=== PATIENT | female | born 1930 | race Caucasian/White ===

== ENCOUNTER 2016-12-24 08:30 | Observation (INO) | payer MEDICARE, MEDICAID ==
[~2016-12-24] VITALS: Ht 157.5 cm; Wt 60.5 kg
[2016-12-24] VITALS (9 sets, daily range): BP systolic 155–204; BP diastolic 63–88; PULSE 58–80; RESP 16–18; TEMP 98.1–98.3; O2SAT 96–99
[~2016-12-24 08:30] MED LIST: CARV3.125 PO; HYDR25TA35 PO; LOSA50TA PO; MECL12.574 PO; NEXI40CA PO; PRAV40TA2 PO; TRAM50 PO; XALA0.00 EACH EYE; ZOFR4TAB3 PO
[2016-12-24] MEDS ORDERED: ONDANSETRON HCL 4 MG/2 ML VIAL IV PUSH ONE (09:30)
--- NOTE | 2016-12-24 10:16 | PD ---
HPI Chief Complaint: Back/ Neck Pain or Injury Time Seen by Provider: 09:20 Travel History International Travel<30 days: No Contact w/Intl Traveler<30days: No Traveled to known affect area: No History of Present Illness HPI Patient is an 86-year-old female who presents to emergency room with her family members for evaluation of neck weakness. Patient reports that she has history of generalized weakness and is currently undergoing home PT. Reports that she had some physical therapy on her neck on Thursday. Patient reports that she woke up on Thursday morning and was unable to lift up her neck. Patient's son thought that symptoms were secondary to overexertion from her physical therapy from the day prior. Reports that they did talk to patient's primary care doctor on Thursday and primary care doctor and PCP suggested that patient undergo PT. Reports that today, patient is still unable to lift her neck up - they did call pcp who told her to go to the hospital for evaluation. Patient denies any fall or trauma. Patient denies any headache at this time, denies any chest pain or shortness of breath. PFSH Past Medical History Cardiovascular Problems: Yes High Cholesterol: Yes Congestive Heart Failure: Yes Diminished Hearing: Yes GERD: Yes Hypertension: Yes Immunizations Current: Yes Tetanus Vaccination: < 5 Years Influenza Vaccination: Yes ?: Not Menopausal: Yes Past Surgical History Appendectomy: Yes Cholecystectomy: Yes Ear Surgery: Yes (cataract and laser) Hysterectomy: Yes (partial) Social History Alcohol Use: No Tobacco Use: No Substance Use: No Allergies-Medications (Allergen,Severity, Reaction): Coded Allergies: Penicillin (Verified Allergy, Severe, Hives, 07/01/16) Sulfa (Verified Allergy, Severe, Anaphylaxis, 07/01/16) Tetanus Toxoid (Verified Allergy, Severe, Nausea/Vomiting, 07/01/16) Reported Meds & Prescriptions Reported Meds & Active Scripts Active Ultram (Tramadol HCl) 50 Mg Tab 50 Mg PO Q6H PRN FOR PAIN Zofran ODT (Ondansetron HCl) 4 Mg Tab 4 Mg PO Q6HR Reported Meclizine Hcl (Meclizine HCl) 12.5 Mg Tab 12.5 Mg PO Q8H PRN Hydralazine HCl 25 Mg Tab 25 Mg PO BID Nexium (Esomeprazole Magnesium) Esomeprazole Magnesium 40 mg Cap 40 Mg PO BID Pravastatin Sodium 40 Mg Tab 40 Mg PO DAILY Coreg 3.125 mg (Carvedilol) 3.125 Mg Tab 12.5 Mg PO BID Losartan Potassium 50 MG (Losartan Potassium) 50 Mg Tab 50 Mg PO BID HOLD FOR BP < 130/80 Xalatan (Latanoprost) 0.005 % Dixie 1 Drop EACH EYE HS Review of Systems General / Constitutional: No: Fever Eyes: No: Visual changes HENT: No: Headaches Cardiovascular: No: Chest Pain or Discomfort Respiratory: No: Shortness of Breath Gastrointestinal: No: Abdominal Pain Genitourinary: No: Dysuria Musculoskeletal: No: Pain Skin: No Rash Neurologic: Positive: Other (neck pain), No: Weakness Psychiatric: No: Depression Endocrine: No: Polydipsia Hematologic/Lymphatic: No: Easy Bruising Physical Exam Narrative GENERAL: nad, nontoxic SKIN: Warm and dry. HEAD: Atraumatic. Normocephalic. EYES: Pupils equal and round. No scleral icterus. No injection or drainage. ENT: No nasal bleeding or discharge. Mucous membranes pink and moist. NECK: Trachea midline. No JVD. positive cervical midline tenderness, patient unable to lift neck CARDIOVASCULAR: Regular rate and rhythm. No murmur appreciated. RESPIRATORY: No accessory muscle use. Clear to auscultation. Breath sounds equal bilaterally. GASTROINTESTINAL: Abdomen soft, non-tender, nondistended. Hepatic and splenic margins not palpable. MUSCULOSKELETAL: No obvious deformities. No clubbing. No cyanosis. No edema. NEUROLOGICAL: Awake and alert. No obvious cranial nerve deficits. Motor grossly within normal limits. Normal speech. PSYCHIATRIC: Appropriate mood and affect; insight and judgment normal. Data Data Last Documented VS Vital Signs Date Time Temp Pulse Resp B/P Pulse Ox O2 Delivery O2 Flow Rate FiO2 12/24/16 10:23 58 17 157/63 98 Room Air 12/24/16 08:31 98.3 Orders Electrocardiogram (12/24/16 09:46) Prothrombin Time / Inr (Pt) (12/24/16 09:46) Act Partial Throm Time (Ptt) (12/24/16 09:46) Complete Blood Count With Diff (12/24/16 09:46) Comprehensive Metabolic Panel (12/24/16 09:46) Creatine Kinase (Cpk) (12/24/16 09:46) Troponin I (12/24/16 09:46) Urinalysis - C+S If Indicated (12/24/16 09:46) Ct Brain W/O Iv Contrast(Rout) (12/24/16 09:46) Chest, Single Ap (12/24/16 09:46) Ecg Monitoring (12/24/16 09:46) Iv Access Insert/Monitor (12/24/16 09:46) Oximetry (12/24/16 09:46) Sodium Chloride 0.9% Flush (Ns Flush) (12/24/16 10:00) Ct Cerv Spine W/O Contrast (12/24/16 ) Urine Culture (12/24/16 09:57) Levofloxacin 500 Mg Premix Inj (Levaquin (12/24/16 10:45) Admit Order (Ed Use Only) (12/24/16 11:27) Labs Laboratory Tests Test 12/24/16 12/24/16 09:57 10:10 Urine Color YELLOW Urine Turbidity HAZY Urine pH 5.5 Urine Specific [place] 1.023 Urine Protein 100 mg/dL Urine Glucose (UA) NEG mg/dL Urine Ketones 10 mg/dL Urine Occult Blood SMALL Urine Nitrite NEG Urine Bilirubin NEG Urine Urobilinogen 2.0 MG/DL Urine Leukocyte Esterase LARGE Urine RBC 6 /hpf Urine WBC 36 /hpf Urine Squamous Epithelial 25 /hpf Cells Urine Transitional Epithelial 1 /hpf Cells Urine Bacteria OCC /hpf Urine Granular Casts 4 /lpf Urine Mucus FEW /lpf Microscopic Urinalysis Comment CATH-CULTURE IND White Blood Count 7.3 TH/MM3 Red Blood Count 3.67 MIL/MM3 Hemoglobin 11.5 GM/DL Hematocrit 33.0 % Mean Corpuscular Volume 89.9 FL Mean Corpuscular Hemoglobin 31.3 PG Mean Corpuscular Hemoglobin 34.8 % Concent Red Cell Distribution Width 12.7 % Platelet Count 318 TH/MM3 Mean Platelet Volume 7.4 FL Neutrophils (%) (Auto) 77.5 % Lymphocytes (%) (Auto) 13.5 % Monocytes (%) (Auto) 6.8 % Eosinophils (%) (Auto) 1.7 % Basophils (%) (Auto) 0.5 % Neutrophils # (Auto) 5.6 TH/MM3 Lymphocytes # (Auto) 1.0 TH/MM3 Monocytes # (Auto) 0.5 TH/MM3 Eosinophils # (Auto) 0.1 TH/MM3 Basophils # (Auto) 0.0 TH/MM3 CBC Comment DIFF FINAL Differential Comment Prothrombin Time 11.1 SEC Prothromb Time International 1.0 RATIO Ratio Activated Partial 22.2 SEC Thromboplast Time Sodium Level 136 MEQ/L Potassium Level 4.1 MEQ/L Chloride Level 103 MEQ/L Carbon Dioxide Level 26.5 MEQ/L Anion Gap 7 MEQ/L Blood Urea Nitrogen 22 MG/DL Creatinine 1.13 MG/DL Estimat Glomerular Filtration 45 ML/MIN Rate Random Glucose 160 MG/DL Calcium Level 8.7 MG/DL Total Bilirubin 0.5 MG/DL Aspartate Amino Transf 15 U/L (AST/SGOT) Alanine Aminotransferase 17 U/L (ALT/SGPT) Alkaline Phosphatase 46 U/L Total Creatine Kinase 79 U/L Troponin I 0.14 NG/ML Total Protein 6.4 GM/DL Albumin 3.1 GM/DL MDM Medical Decision Making Medical Screen Exam Complete: Yes Emergency Medical Condition: Yes Interpretation(s) Vital Signs Date Time Temp Pulse Resp B/P Pulse Ox O2 Delivery O2 Flow Rate FiO2 12/24/16 08:31 98.3 73 18 159/65 Room Air Differential Diagnosis cva, electrolyte abnormality, cervical radiculopathy, generalized muscle weakness, C-spine fracture Narrative Course Patient is an 86-year-old female who presents to emergency room for evaluation of weakness to her neck. Patient reports that she has not been able to lift up her neck since Thursday morning. Patient denies any trauma to her neck other than undergoing some physical therapy to her neck on Thursday. Patient reports that she called her primary care doctor and was instructed to come to the ER for further workup and evaluation of neck weakness. Patient with no other c/o at this time. cbc: wbc: 7.3 hgb: 11.5 hct: 33.0 platelets: 318 bmp: sodium 136 potassium 4.1 chloride 103 bun 11 cr 1.13 glucose 160 trop 0.14 coags pt: 11.1 ptt 22.2 inr 1.0 UA: hazy urine, small occult blood, large leuk esteraste, 36wbc, occ bacteria Last Impressions Head CT 12/24/16945 Signed Impressions: Service Date/Time: Saturday, December 24, 2016 10:36 - CONCLUSION: Negative for an acute process. Triston Escobar MD FACR Chest X-Ray 12/24/16945 Signed Impressions: Service Date/Time: Saturday, December 24, 2016 09:50 - CONCLUSION: 1. No acute cardiopulmonary findings. Bret Escobar MD ekg: nsr at 61bmp, qt/qtc: 408/403, no acute st or t change, pt does have a trop of 0.14 - pt with no chest pain at this time. pt with NSTEMI pt also with uti - pt was given dose of levaquin for uti BUN/CR mildly elevated - pt was given IVF pt will require admission for further workup of NSTEMI, dehydration and for her weakness and inability to lift up her neck. case reviewed with dr. yoo with FP - accepts pt to service Diagnosis Primary Impression: NSTEMI (non-ST elevated myocardial infarction) Additional Impressions: UTI (urinary tract infection) Qualified Code: N30.01 - Acute cystitis with hematuria Dehydration Admitting Information Admitting Physician Requests: Admit Stacey Cuello DO Dec 24, 2016 10:16
--- NOTE | 2016-12-24 10:19 | RADRPT ---
EXAM DATE/TIME: 12/24/2016 09:50 [facility] COMPARISON: No previous studies available for comparison. INDICATIONS : Possible cerebrovascular accident. Head drooping. MEDICAL HISTORY : Gastroesophageal reflux disease. SURGICAL HISTORY : Hysterectomy. Appendectomy. Cholecystectomy. ENCOUNTER: Initial ACUITY: 1 day PAIN SCORE: 0/10 LOCATION: Bilateral chest FINDINGS: The heart is at the upper limits of normal in size. There mild chronic appearing interstitial changes within the pulmonary parenchyma. The lungs are otherwise clear. The visualized bony structures are g rossly intact. CONCLUSION: 1. No acute cardiopulmonary findings. Bret Escobar MD on December 24, 2016 at 10:15 Board Certified Radiologist. This report was verified electronically.
[2016-12-24 10:22] LABS: AUTOMATED NEUTROPHIL # 5.6 TH/MM3 (1.8-7.7); BASOPHIL % 0.5 % (0.0-2.0); EOSINOPHIL # 0.1 TH/MM3 (0-0.4); EOSINOPHIL % 1.7 % (0.0-4.0); HEMO FLAGS DIFF FINAL; LYMPH % 13.5 % (9.0-44.0); MEAN CELL VOLUME 89.9 FL (80.0-100.0); MEAN CORPUSCULAR HEMOGLOBIN 31.3 PG (27.0-34.0); MEAN CORPUSCULAR HGB CONC 34.8 % (32.0-36.0); MONO % 6.8 % (0.0-8.0); NEUT % 77.5 % (16.0-70.0); PLATELET COUNT 318 TH/MM3 (150-450); RED BLOOD COUNT 3.67 MIL/MM3 (4.00-5.30); RED CELL DISTRIBUTION WIDTH 12.7 % (11.6-17.2); WHITE BLOOD COUNT 7.3 TH/MM3 (4.0-11.0)
[2016-12-24 10:25] LABS: BACTERIA, URINE OCC /hpf; BLOOD, URINE SMALL (NEG); GLUCOSE,URINE NEG (NEG); GRANULAR CAST, URINE 4 /lpf; KETONE, URINE 10 mg/dL (NEG); MUCUS URINE FEW /lpf (OCC); NITRITE,URINE NEG (NEG); PH, URINE 5.5 (5.0-8.5); SQUAMOUS EPITHELIAL CELL URINE 25 /hpf (0-5); TRANSITIONAL EPI CELLS, URINE 1 /hpf; URINE COLOR YELLOW (YELLW/STRAW)
[2016-12-24 10:26] LABS: COMMENT (UR) CATH-CULTURE IND; CULTURE IF INDICATED CATH CULTURE IND
[2016-12-24 10:36] LABS: APTT (PATIENT) 22.2 SEC (24.3-30.1); PROTHROMBIN TIME - PATIENT 11.1 SEC (9.8-11.6)
[2016-12-24 10:45] LABS: ANION GAP 7 MEQ/L (5-15); AST (GOT) 15 U/L (15-37); BICARBONATE 26.5 MEQ/L (21.0-32.0); BLOOD UREA NITROGEN 22 MG/DL (7-18); CHLORIDE 103 MEQ/L (98-107); GLOMERULAR FILTRATION RATE 45 ML/MIN (>89); POTASSIUM 4.1 MEQ/L (3.5-5.1); SODIUM (NA) 136 MEQ/L (136-145)
[2016-12-24] MEDS ORDERED: LEVOFLOXACIN 500 MG PREMIX INJ 100 ML IV ONE (10:45)
--- NOTE | 2016-12-24 10:48 | RADRPT ---
EXAM DATE/TIME: 12/24/2016 10:36 [facility] COMPARISON: No previous studies available for comparison. INDICATIONS : Woke up feeling as if she couldn't hold her head up. RADIATION DOSE: 31.32 CTDIvol (mGy) MEDICAL HISTORY : Cardiovascular disease. Congestive heart failure. Hypertension. SURGICAL HISTORY : None. ENCOUNTER: Initial ACUITY: 1 day PAIN SCALE: 0/10 LOCATION: cranial TECHNIQUE: Multiple contiguous axial images were obtained of the head. Using automated exposure control and adj ustment of the mA and/or kV according to patient size, radiation dose was kept as low as reasonably a chievable to obtain optimal diagnostic quality images. FINDINGS: CEREBRUM: The ventricles are normal for age. No evidence of midline shift, mass lesion, hemorrhage or acute in farction. No extra-axial fluid collections are seen. POSTERIOR FOSSA: The cerebellum and brainstem are intact. The 4th ventricle is midline. The cerebellopontine angle i s unremarkable. EXTRACRANIAL: The visualized portion of the orbits is intact. SKULL: The calvaria is intact. No evidence of skull fracture. CONCLUSION: Negative for an acute process. Triston Escobar MD FACR on December 24, 2016 at 10:45 Board Certified Radiologist. This report was verified electronically.
[2016-12-24 10:50] LABS: ALKALINE PHOSPHATASE 46 U/L (45-117); ALT (GPT) 17 U/L (10-53); CREATINE KINASE 79 U/L (26-192); TOTAL BILIRUBIN ADULT 0.5 MG/DL (0.2-1.0)
--- NOTE | 2016-12-24 11:06 | RADRPT ---
EXAM DATE/TIME: 12/24/2016 10:36 [facility] COMPARISON: No previous studies available for comparison. INDICATIONS : Neck pain and head heaviness. RADIATION DOSE: 19.83 CTDIvol (mGy) MEDICAL HISTORY : Cardiovascular disease. Congestive heart failure. Hypertension. SURGICAL HISTORY : None. ENCOUNTER: Initial ACUITY: 1 day PAIN SCALE: 0/10 LOCATION: Neck TECHNIQUE: Volumetric scanning of the cervical spine was performed. Multiplanar reconstructions in the sagittal, coronal and oblique axial planes were performed. Using automated exposure control and adjustment o f the mA and/or kV according to patient size, radiation dose was kept as low as reasonably achievable to obtain optimal diagnostic quality images. FINDINGS: There are degenerative changes in the cervical spine. Neck is hyperextended but alignment is anatomic. C1 and C2 are intact. C2-C3: Mild facet disease is seen on the left. There is no significant spinal stenosis. C3-C4: Moderate uncinate ridging is present with moderate left-sided neural foraminal encroachment. C4-C5: There is mild neural foraminal encroachment. Alignment is anatomic. Fracture is not appreciated. C5-C6: Mild uncinate ridging is present without significant neural foraminal encroachment or spinal stenosis . C6-C7: Mild uncinate ridging is present. There is no significant spinal stenosis or neural foraminal encroa chment. C7-T1: The bony spinal canal is normal in size. No evidence of disc bulge or herniation. The neural forami na are bilaterally patent. CONCLUSION: Degenerative changes, negative for a fracture. Triston Escobar MD FACR on December 24, 2016 at 10:56 Board Certified Radiologist. This report was verified electronically.
[2016-12-24] MEDS ORDERED: ASPIRIN 325 MG TAB PO ONE (11:45)
[2016-12-24] MEDS ORDERED: POTA1TAB4 PO (12:00)
[2016-12-24] MEDS ORDERED: THERTAB41 PO (12:00)
[2016-12-24] MEDS ORDERED: CLON0.1T PO (12:04)
[2016-12-24] MEDS ORDERED: LABE100T2 PO (12:04)
[2016-12-24] MEDS ORDERED: LOSA50TA PO (12:04)
[2016-12-24] MEDS ORDERED: MECL12.574 PO (12:04)
[2016-12-24] MEDS ORDERED: FURO1TAB60 PO (12:04)
[2016-12-24] MEDS ORDERED: PRAV40TA2 PO (12:04)
[2016-12-24] MEDS ORDERED: LATA0.002 EACH EYE (12:07)
[2016-12-24] MEDS ORDERED: ESOM1CAP16 PO (12:07)
--- NOTE | 2016-12-24 12:17 | HHI.FPPN ---
Subjective Subjective Patient seen and examined. Case reviewed and discussed Please refer to resident H&P for further details regarding HPI, ROS, PMH, SurgHx , FH and SocHx In summary, patient presenting accompanied by son for weakness Patient had extensive therapy including neck exercises over the weekend, the following day she was unable to lift her head. PT and PCP instructed patient to be brought to the hospital for evaluation. Not getting any better, BP has also been out of control despite clonidine which is out of character for her +headache, son has had to hold her head up so that she can eat No increased difficulty with swallowing. No visual changes No confusion, at baseline mentally. NO falls at home, no additional weakness outside of the neck. No fevers, chills. No urinary symptoms. [facility] Objective Objective Last Impressions Abdomen Ultrasound 12/24/16 1528 Signed Impressions: Service Date/Time: Saturday, December 24, 2016 15:24 - CONCLUSION: 1. No evidence of acute abdominal process. No masses are identified. Domingo Francisco MD Head CT 12/24/16 0946 Signed Impressions: Service Date/Time: Saturday, December 24, 2016 10:36 - CONCLUSION: Negative for an acute process. Triston Escobar MD FACR Chest X-Ray 12/24/1646 Signed Impressions: Service Date/Time: Saturday, December 24, 2016 09:50 - CONCLUSION: 1. No acute cardiopulmonary findings. Bret Escobar MD Neck Ultrasound 12/24/16 0000 Signed Impressions: Service Date/Time: Saturday, December 24, 2016 15:47 - CONCLUSION: No soft tissue abnormality to correspond with mass. The mass may correspond to underlying bone Mejia Erickson MD Cervical Spine CT 12/24/16 0000 Signed Impressions: Service Date/Time: Saturday, December 24, 2016 10:36 - CONCLUSION: Degenerative changes, negative for a fracture. Triston Escobar MD FACR Laboratory Tests - Abnormals Test 12/24/16 12/24/16 09:57 10:10 Urine Turbidity HAZY Urine Protein 100 mg/dL Urine Ketones 10 mg/dL Urine Occult Blood SMALL Urine Leukocyte Esterase LARGE Urine RBC 6 /hpf Urine WBC 36 /hpf Urine Bacteria OCC /hpf Urine Mucus FEW /lpf Red Blood Count 3.67 MIL/MM3 Hemoglobin 11.5 GM/DL Hematocrit 33.0 % Neutrophils (%) (Auto) 77.5 % Activated Partial 22.2 SEC Thromboplast Time Blood Urea Nitrogen 22 MG/DL Creatinine 1.13 MG/DL Estimat Glomerular Filtration 45 ML/MIN Rate Random Glucose 160 MG/DL Troponin I 0.14 NG/ML Albumin 3.1 GM/DL Vital Signs 12/24/16 12/24/16 12/24/16 12/24/16 08:31 08:46 10:21 10:23 Temp 98.3 Pulse 73 60 58 Resp 18 16 17 B/P 159/65 155/67 157/63 Pulse Ox 98 98 98 O2 Delivery Room Air Room Air Room Air Room Air Physical exam GENERAL: elderly female sitting in bed, awake, NAD SKIN: Warm and dry. No rashes, abrasions HEAD: Normocephalic. AT EYES: No scleral icterus. No injection or drainage. NECK: Supple, trachea midline. No JVD or lymphadenopathy. Tenderness to palpation along paraspinal muscles posteriorly CARDIOVASCULAR: Regular rate and rhythm without murmurs, gallops, or rubs. RESPIRATORY: Breath sounds equal and clear bilaterally. No accessory muscle use. GASTROINTESTINAL: Abdomen soft, tender to palpation over RLQ, nondistended. No rebound. MUSCULOSKELETAL: No cyanosis, or edema. No calf tenderness. BACK: Nontender without obvious deformity. No CVA tenderness. NEURO: Awake. Follows commands. Neck weakness and inability to hold head upright for long. 4/5 UE bilat, 3-4/5 LE bilat Assessment Assessment 86yoF admitted with: Weakness, possible over use injury but r/o CVA AMS Possible UTI Elevated troponin PLAN PLAN MRI Brain to eval for CVA MRA Neck PT consult Follow urine cultures Empiric antibiotic therapy Resume home meds as appropriate Carotid ultrasound 2D echo Patient seen and examined Case reviewed and discussed Ori with plan of care as discussed with me and documented in the resident note. Kaylee Mcgowan MD Dec 24, 2016 12:17
--- NOTE | 2016-12-24 13:48 | HHI.HP ---
[facility] Service Family Medicine Primary Care Physician Cielo Dumont MD Admission Diagnosis NSTEMI, UTI, Generalized weakness Diagnoses: International Travel<30 Days: No Contact w/Intl Traveler<30days: No Known Affected Area: No History of Present Illness Patient is an 86-year-old female that presents to the [facility] ED with a chief complaint of neck pain that began on Wednesday 12/20 after a session of physical therapy at home. Patient's son Romeo, whom the patient lives with, provides most of the history. Patient normally gets physical therapy at home but Thursday was the first time that the therapist decided to do neck exercises. The patient states that during the exercise she felt a pop in her neck. The next morning, the patient could not move her neck which has remained in a flexed position due to pain. The neck pain is located in her C-spine around C3-4 level. She rates the pain as 10/10. The patient's son contacted the physical therapist and the patient's PCP, who both agreed that she should come into the hospital today. The patient denies fever, chills, dysuria, nausea, vomiting, but complains of 10 /10 right lower quadrant abdominal pain for the past 4-5 months that she says " feels like something is about to burst in there. "She also had 10 episodes of loose, nonbloody diarrhea on Thursday, as well as multiple episodes of diarrhea a week before Thursday. She has not had any chest pain. (Cheri Gil MD R1) Review of Systems Constitutional: DENIES: Fever, Chills Eyes: DENIES: Eye pain Ears, nose, mouth, throat: DENIES: Nasal discharge, Ear Pain, Running Nose Respiratory: DENIES: Cough, Shortness of breath Cardiovascular: DENIES: Chest pain Gastrointestinal: DENIES: Abdominal pain, Nausea, Vomiting Genitourinary: DENIES: Urinary frequency, Dysuria Musculoskeletal: COMPLAINS OF: Joint pain, Neck pain Integumentary: DENIES: Rash Neurologic: DENIES: Headache (Cheri Gil MD R1) Past Family Social History Past Medical History HTN GERD HLD Borderline DM Renal dysfunction Bilateral frozen shoulder Past Surgical History Partial hysterectomy Cholecystectomy Reported Medications Reported Meds & Active Scripts Active Reported Esomeprazole DR 40 Mg Capdr 40 Mg PO BID Latanoprost Opth Drops (Latanoprost) 0.005% Drops 1 Drop EACH EYE HS Refrigerate until opened. Losartan (Losartan Potassium) 50 Mg Tab 50 Mg PO BID Meclizine (Meclizine HCl) 12.5 Mg Tab 6.25 Mg PO Q8HR PRN Pravastatin 40 Mg Tab 40 Mg PO DAILY Clonidine (Clonidine HCl) 0.1 Mg Tab 0.1 Mg PO TID Lasix (Furosemide) 40 Mg Tab 40 Mg PO DAILY PRN Labetalol (Labetalol HCl) 100 Mg Tab 100 Mg PO TID K-Tab (Potassium Chloride) 20 Meq Tab 20 Meq PO DAILY Thermotabs (Oral Electrolytes) 1 Tab Tab 1 Tab PO DAILY (Eko,Cheri Dorantes MD R1) Allergies: Coded Allergies: Penicillin (Verified Allergy, Severe, Hives, 07/01/16) Sulfa (Verified Allergy, Severe, Anaphylaxis, 07/01/16) Tetanus Toxoid (Verified Allergy, Severe, Nausea/Vomiting, 07/01/16) Family History DM - sisters, brother CAD - brother Social History Never smoker Never alcohol Never drug use (EkCheri duran MD R1) Physical Exam Vital Signs Vital Signs Date Time Temp Pulse Resp B/P Pulse Ox O2 Delivery O2 Flow Rate FiO2 12/24/16 10:23 58 17 157/63 98 Room Air 12/24/16 10:21 98 Room Air 12/24/16 08:46 60 16 155/67 98 Room Air 12/24/16 08:31 98.3 73 18 159/65 Room Air Physical Exam GENERAL: This is a well-nourished, well-developed patient, in no apparent distress. SKIN: No rashes, ecchymoses or lesions. Cool and dry. HEAD: Atraumatic. Normocephalic. No temporal or scalp tenderness. EYES: Pupils equal round and reactive. Extraocular motions intact. No scleral icterus. No injection or drainage. ENT: Neck remains in flexed position. Possible 2-3 cm soft tissue swelling on her posterior neck, which could 2/2 to neck position. Nose without bleeding, purulent drainage or septal hematoma. Throat without erythema, tonsillar hypertrophy or exudate. Uvula midline. Airway patent. NECK: Trachea midline. No JVD or lymphadenopathy. Supple, nontender, no meningeal signs. CARDIOVASCULAR: Regular rate and rhythm without murmurs, gallops, or rubs. RESPIRATORY: Clear to auscultation. Breath sounds equal bilaterally. No wheezes , rales, or rhonchi. GASTROINTESTINAL: Abdomen soft, non-tender, nondistended. No hepato-splenomegaly , or palpable masses. No guarding. MUSCULOSKELETAL: Extremities without clubbing, cyanosis, or edema. No joint tenderness, effusion, or edema noted. No calf tenderness. NEUROLOGICAL: Awake and alert. Cranial nerves II through XII intact. Motor and sensory grossly within normal limits. Five out of 5 muscle strength in all muscle groups. Normal speech. Laboratory Laboratory Tests Test 12/24/16 12/24/16 09:57 10:10 Urine Color YELLOW Urine Turbidity HAZY Urine pH 5.5 Urine Specific [place] 1.023 Urine Protein 100 Urine Glucose (UA) NEG Urine Ketones 10 Urine Occult Blood SMALL Urine Nitrite NEG Urine Bilirubin NEG Urine Urobilinogen 2.0 Urine Leukocyte Esterase LARGE Urine RBC 6 Urine WBC 36 Urine Squamous Epithelial 25 Cells Urine Transitional Epithelial 1 Cells Urine Bacteria OCC Urine Granular Casts 4 Urine Mucus FEW Microscopic Urinalysis Comment CATH-CULTURE IND White Blood Count 7.3 Red Blood Count 3.67 Hemoglobin 11.5 Hematocrit 33.0 Mean Corpuscular Volume 89.9 Mean Corpuscular Hemoglobin 31.3 Mean Corpuscular Hemoglobin 34.8 Concent Red Cell Distribution Width 12.7 Platelet Count 318 Mean Platelet Volume 7.4 Neutrophils (%) (Auto) 77.5 Lymphocytes (%) (Auto) 13.5 Monocytes (%) (Auto) 6.8 Eosinophils (%) (Auto) 1.7 Basophils (%) (Auto) 0.5 Neutrophils # (Auto) 5.6 Lymphocytes # (Auto) 1.0 Monocytes # (Auto) 0.5 Eosinophils # (Auto) 0.1 Basophils # (Auto) 0.0 CBC Comment DIFF FINAL Differential Comment Prothrombin Time 11.1 Prothromb Time International 1.0 Ratio Activated Partial 22.2 Thromboplast Time Sodium Level 136 Potassium Level 4.1 Chloride Level 103 Carbon Dioxide Level 26.5 Anion Gap 7 Blood Urea Nitrogen 22 Creatinine 1.13 Estimat Glomerular Filtration 45 Rate Random Glucose 160 Calcium Level 8.7 Total Bilirubin 0.5 Aspartate Amino Transf 15 (AST/SGOT) Alanine Aminotransferase 17 (ALT/SGPT) Alkaline Phosphatase 46 Total Creatine Kinase 79 Troponin I 0.14 Total Protein 6.4 Albumin 3.1 Date/Time Procedure Status Source Growth 12/24/16 09:57 Urine Culture Received Urine Catheterized Urine Pending (Cheri Gil MD R1) Result Diagram: 12/24/16 1010 12/24/16 1010 Imaging Last Impressions Head CT 12/24/16 0946 Signed Impressions: Service Date/Time: Saturday, December 24, 2016 10:36 - CONCLUSION: Negative for an acute process. Triston Escobar MD FACR Chest X-Ray 12/24/16945 Signed Impressions: Service Date/Time: Saturday, December 24, 2016 09:50 - CONCLUSION: 1. No acute cardiopulmonary findings. Bret Escobar MD Course In the ED, a CT head without contrast and CT cervical spine without contrast were performed. CT head was negative and CT spine showed chronic degenerative changes with no acute cervical fractures. Urinalysis was concerning for UTI. The patient received one dose of Levaquin 500 mg IV. She was also found to have elevated troponin at 0.14 and is currently undergoing ACS rule out. (Cheri Gil MD R1) Assessment and Plan Assessment and Plan Patient is an 86-year-old female with a past medical history of hypertension, renal dysfunction, and borderline diabetes that presents with a chief complaint of neck pain of 5 days' duration after performing neck physical therapy exercises. Differential diagnosis includes acute cervical fracture, exacerbation of chronic degenerative disease of the spine, CVA, muscle strain, and ligament strain. Troponin 1 was elevated at 0.14 patient will be admitted for ACS rule out and stroke rule out due to neck manipulation. Code Status Full code, notably patient has a living will from 1999 that states that she is DNR Discussed Condition With Seen and examined with Dr. Paez, PGY 2. Will discuss with Dr. Mcgowan. (Cheri Gil MD R1) Attending Attestation The patient has been seen and examined. The chart and all resident notes have been reviewed. I agree that inpatient care is appropriate and that a two midnight stay is expected for the reasons documented in the resident history and physical. I have discussed this with the resident and certify the resident s order for inpatient admission. (Kaylee Mcgowan MD) Problem List: (1) NSTEMI (non-ST elevated myocardial infarction) Status: Acute Plan: -Troponin elevated at 0.14, EKG 1 shows normal sinus rhythm with no acute ST changes, rate of 61 -Patient denies chest pain or shortness of breath -Will trend troponin 2, EKG 2, CKMB 2 -Will start heparin drip if second or third troponin is elevated -Consider cardiology consult (2) Acute neck pain Status: Acute Plan: -Acute neck pain of 5 days duration -CT C-spine negative for acute fracture, shows chronic degenerative changes -Will order ultrasound of soft tissue of the posterior neck to rule out fluid collection -MRI and MRA brain to check for stroke and MRA carotid arteries (3) UTI (urinary tract infection) Status: Acute Plan: -Urinalysis shows large leukocyte esterase, 36 WBC, 6 rbc, small occult blood, 100 protein -Patient received one dose of Levaquin 500 mg IV in the ED -Will start ciprofloxacin 400 mg every 12 hours -Ultrasound abdomen complete to assess for kidneys (4) Abdominal pain Status: Acute Plan: -Abdominal pain of 4-5 months duration -Located mostly in the right lower quadrant -History of diarrhea 5 days prior -Will order ultrasound of abdomen -CT abdomen and pelvis -Will order stool studies if diarrhea recurs (5) Renal insufficiency Status: Acute Plan: -History of chronic insufficiency -Last known creatinine 1.10 in June 2016 -Will order ultrasound abdomen complete to include kidneys, ureters, bladder -Continue maintenance fluids NS @ 100 mls/hr (6) Hypertension Status: Acute Plan: -Continue home losartan 50 mg by mouth twice a day -Continue home labetalol 100 mg, but will start with once daily and transition to TID home dose if necessary -Clonidine 0.1 mg every 6 hours when necessary SBP greater than or equal to 180 , DBP greater than or equal to 100 -Lasix 40 mg daily by mouth when necessary edema (7) Hyperlipidemia Status: Acute Plan: -Continue pravastatin 40 mg by mouth at bedtime (8) FEN/DVT PPX/GI PPX Status: Acute Plan: Fluids: NS @ 100 mls/hr Electrolytes: Will monitor and replace as needed Nutrition: Renal diet DVT Prophylaxis: Heparin subcutaneous every 12 hours GI Prophylaxis: Protonix 40 mg PO twice a day (Eko,Cheri Dorantes MD R1) Problem Qualifiers (1) UTI (urinary tract infection): Qualified Code: N30.01 - Acute cystitis with hematuria (2) Abdominal pain: Qualified Code: R10.31 - Right lower quadrant abdominal pain (3) Hypertension: Qualified Code: I10 - Essential hypertension (4) Hyperlipidemia: Qualified Code: E78.5 - Hyperlipidemia, unspecified hyperlipidemia type Cheri Gil MD R1 Dec 24, 2016 13:48 Kaylee Mcgowan MD Dec 25, 2016 21:46
[2016-12-24] MEDS ORDERED: FUROSEMIDE 40 MG TAB PO PRN (14:00)
[2016-12-24] MEDS ORDERED: NITROGLYCERIN 2% OINT 1 GM PACKET TOPICAL PRN (14:15)
[2016-12-24] MEDS ORDERED: SYRINGE/BAG 1 EA PO SCH (14:15)
[2016-12-24] MEDS ORDERED: TEMAZEPAM 7.5 MG CAP PO PRN (15:45)
[2016-12-24] MEDS: SODIUM CHLOR 0.9% 1000 ML INJ 1,000 ML IV SCH (16:07)
--- NOTE | 2016-12-24 16:25 | RADRPT ---
EXAM DATE/TIME: 12/24/2016 15:47 [facility] COMPARISON: No previous studies available for comparison. INDICATIONS : Palpable mass on the back of neck, patient complained of a stiff neck. MEDICAL HISTORY : Congestive heart failure. Hypercholesterolemia. Gastroesophageal reflux disease. Hypertension. Renal disfuction. Bilateral frozen shoulders. SURGICAL HISTORY : Appendectomy. Cholecystectomy. Hysterectomy. Cataract repair with laser. ENCOUNTER: Initial ACUITY: 1 day PAIN SCORE: 4/10 LOCATION: Posterior neck. AREA EVALUATED: Posterior neck FINDINGS: MASSES: None. FLUID COLLECTIONS: None. OTHER: Negative. CONCLUSION: No soft tissue abnormality to correspond with mass. The mass may correspond to underlying bone Mejia Erickson MD on December 24, 2016 at 16:23 Board Certified Radiologist. This report was verified electronically.
[2016-12-24] MEDS: cloNIDine HCL 0.1 MG TAB PO PRN (16:59)
--- NOTE | 2016-12-24 17:04 | RADRPT ---
EXAM DATE/TIME: 12/24/2016 15:24 [facility] COMPARISON: No previous studies available for comparison. INDICATIONS : Abdominal pain. MEDICAL HISTORY : Gastroesophageal reflux disease. Hypercholesterolemia. Congestive heart failure. Hypertension. Renal disfuction. Bilateral frozen shoulders. SURGICAL HISTORY : Appendectomy. Hysterectomy. Cholecystectomy. Cataract repair with laser. ENCOUNTER: Initial ACUITY: 1 day PAIN SCORE: 3/10 LOCATION: Bilateral upper quadrant MEASUREMENTS: LIVER: 15.5 cm length COMMON DUCT: 8 mm RIGHT KIDNEY: 10.2 x 5.1 x 4.7 cm LEFT KIDNEY: 8.0 x 4.2 x 4.3 cm SPLEEN: 9.0 cm length AORTA: 1.7cm maximal FINDINGS: Ultrasound of the upper abdomen demonstrates normal echogenicity of the liver. No intrahepatic or ext ra hepatic ductal dilatation is seen. There is hepatopedal flow through the portal vein. The spleen is normal in size and free of focal defects. The gallbladder is surgically absent. The intrahepatic d ucts and common bile duct are prominent which may reflect reservoir effect. The pancreas demonstrates no evidence of mass and there is no dilatation of the pancreatic duct. Ultrasound of the kidneys dem onstrate normal size shape and echogenicity. No hydronephrosis or mass lesions are identified. The bl adder appears normal. No wall thickening or intraluminal masses are identified. No other marrow is id entified in the right lower quadrant. CONCLUSION: 1. No evidence of acute abdominal process. No masses are identified. Domingo Francisco MD on December 24, 2016 at 17:01 Board Certified Radiologist. This report was verified electronically.
[2016-12-24] MEDS: ACETAMINOPHEN 325 MG TAB PO PRN (17:07)
[2016-12-24] MEDS ORDERED: LABETALOL HCL 100 MG TAB PO SCH (18:00)
[2016-12-24] MEDS ORDERED: hydrALAZINE HCL 20 MG/ML VIAL IV PUSH ONE (19:15)
[2016-12-24] MEDS ORDERED: DIATRIZOATE MEGLUM/DIATRIZOATE SOD 9 ML CUP PO ONE (20:30)
[2016-12-24] MEDS ORDERED: PRAVASTATIN SOD 40 MG TAB PO SCH (21:00)
[2016-12-24] MEDS: HEPARIN SODIUM - SQ 10,000 UNITS/ML VIAL SQ SCH (21:00)
[2016-12-24] MEDS: LATANOPROST 0.005% OPHT SOLN 2.5 ML BTL EACH EYE SCH (21:00)
[2016-12-24] MEDS: CIPROFLOXACIN 400 MG PREMIX 200 ML IV SCH (21:56)
[2016-12-24] MEDS: LOSARTAN 50 MG TAB PO SCH (21:56)
[2016-12-24] MEDS: SODIUM CHLORIDE 0.9% FLUSH 5 ML FLUSH IVF PRN (21:56)
[2016-12-24] MEDS: PANTOPRAZOLE SOD 40 MG DELAYED RELEASE TAB PO SCH (21:56)
[2016-12-24 23:28] LABS: ALKALINE PHOSPHATASE 44 U/L (45-117); ALT (GPT) 16 U/L (10-53); ANION GAP 11 MEQ/L (5-15); AST (GOT) 9 U/L (15-37); BLOOD UREA NITROGEN 19 MG/DL (7-18); CHLORIDE 101 MEQ/L (98-107); GLOMERULAR FILTRATION RATE 52 ML/MIN (>89); MAGNESIUM 1.8 MG/DL (1.5-2.5); POTASSIUM 3.6 MEQ/L (3.5-5.1); SODIUM (NA) 134 MEQ/L (136-145); TOTAL BILIRUBIN ADULT 0.4 MG/DL (0.2-1.0)
[2016-12-24 23:29] LABS: CREATINE KINASE 45 U/L (26-192)
[2016-12-25] VITALS (10 sets, daily range): BP systolic 153–185; BP diastolic 65–79; PULSE 69–88; RESP 16–18; TEMP 97.8–98.9; O2SAT 93–98
[2016-12-25] MEDS: SODIUM CHLOR 0.9% 1000 ML INJ 1,000 ML IV SCH ×4 (02:00→21:12)
[2016-12-25] MEDS ORDERED: IOHEXOL 350 MG/ML 10 ML VIAL (for RAD DIAG) IV ONE (02:35)
--- NOTE | 2016-12-25 03:17 | RADRPT ---
EXAM DATE/TIME: 12/25/2016 02:21 [facility] COMPARISON: CT ABDOMEN & PELVIS W CONTRAST, July 01, 2016, 13:39. INDICATIONS : Right lower quandrant pain for 4-5 months IV CONTRAST: 74 cc Omnipaque 350 (iohexol) IV ORAL CONTRAST: Prescribed oral contrast ingested. RADIATION DOSE: 9.96 CTDIvol (mGy) MEDICAL HISTORY : Cardiovascular disease. Hypertension. Gastroesophageal reflux disease. SURGICAL HISTORY : Cholecystectomy. Appendectomy. ENCOUNTER: Initial ACUITY: 4 - 6 months PAIN SCALE: 4/10 LOCATION: Right lower quadrant TECHNIQUE: Volumetric scanning of the abdomen and pelvis was performed. Using automated exposure control and ad justment of the mA and/or kV according to patient size, radiation dose was kept as low as reasonably achievable to obtain optimal diagnostic quality images. FINDINGS: There is a small right pleural effusion. Dependent atelectasis present in both lungs. There is a smal l pericardial effusion. No acute findings in the liver, spleen, adrenals, kidneys and pancreas. Again seen is scarring in the left kidney similar to June 2016. Postoperative cholecystectomy. No biliary ductal dilatation. No bowel obstruction. Rectal constipation present. Trace free fluid around the liver and in the pelvi s. No acute bony abnormality. CONCLUSION: 1. Small pericardial effusion similar in size to June 2016. 2. New small right effusion with dependent atelectasis in both lungs. 3. Rectal constipation. Cholecystectomy. Chava Katz MD on December 25, 2016 at 3:10 Board Certified Radiologist. This report was verified electronically.
[2016-12-25] MEDS: POLYETHYLENE GLYCOL 17 GM PKG PO SCH (07:52)
[2016-12-25] MEDS: PANTOPRAZOLE SOD 40 MG DELAYED RELEASE TAB PO SCH ×2 (07:52→21:11)
[2016-12-25] MEDS: POTASSIUM CHLORIDE 20 MEQ CONTROLLED RELEASE TAB PO SCH (07:52)
[2016-12-25] MEDS: HEPARIN SODIUM - SQ 10,000 UNITS/ML VIAL SQ SCH ×2 (07:52→21:00)
[2016-12-25] MEDS: SODIUM CHLORIDE 0.9% FLUSH 5 ML FLUSH IVF PRN (07:53)
[2016-12-25] MEDS: LABETALOL HCL 100 MG TAB PO SCH ×3 (07:53→21:13)
[2016-12-25 08:01] LABS: AUTOMATED NEUTROPHIL # 4.7 TH/MM3 (1.8-7.7); BASOPHIL % 0.5 % (0.0-2.0); EOSINOPHIL # 0.1 TH/MM3 (0-0.4); EOSINOPHIL % 1.4 % (0.0-4.0); HEMATOCRIT 32.7 % (35.0-46.0); HEMO FLAGS DIFF FINAL; LYMPH % 17.1 % (9.0-44.0); LYMPHOCYTE # 1.1 TH/MM3 (1.0-4.8); MEAN CELL VOLUME 90.3 FL (80.0-100.0); MEAN CORPUSCULAR HEMOGLOBIN 30.9 PG (27.0-34.0); MEAN CORPUSCULAR HGB CONC 34.3 % (32.0-36.0); MONO % 7.2 % (0.0-8.0); NEUT % 73.8 % (16.0-70.0); PLATELET COUNT 291 TH/MM3 (150-450); RED BLOOD COUNT 3.62 MIL/MM3 (4.00-5.30); RED CELL DISTRIBUTION WIDTH 12.7 % (11.6-17.2); WHITE BLOOD COUNT 6.4 TH/MM3 (4.0-11.0)
[2016-12-25] MEDS ORDERED: LABETALOL HCL 100 MG TAB PO SCH (09:00)
[2016-12-25] MEDS: LOSARTAN 50 MG TAB PO SCH ×2 (09:19→18:47)
[2016-12-25] MEDS: CIPROFLOXACIN 400 MG PREMIX 200 ML IV SCH ×2 (09:19→21:12)
--- NOTE | 2016-12-25 09:28 | RADRPT ---
EXAM DATE/TIME: 12/25/2016 08:21 [facility] COMPARISON: No previous studies available for comparison. INDICATIONS: Stroke. MEDICAL HISTORY: Hypertension. SURGICAL HISTORY: Hysterectomy. Cholecystectomy. ENCOUNTER: Subsequent ACUITY: 4-6 days PAIN SCORE: 0/10 LOCATION: Cranial Please note a normal MRA of the brain does not entirely exclude the possibility of a small aneurysm, nor the possibility of distal intracranial vessel disease. TECHNIQUE: 3D time of flight MRA was performed. Source images, multiplanar STS MIP, and 3D volum e MIP reconstructions were reviewed. FINDINGS: MRA of the brain demonstrates the right vertebral artery contributes all the flow to the basilar ino ry. On the reformat images there is a 50% stenosis involving the vertebral artery and there is a que stionable filling defect in the vertebral artery distal to the stenosis could be some thrombus. Left vertebral artery is not identified. The basilar artery bifurcation is unremarkable contributing the majority of the flow to the left P1 s egment; in fact, the right P1 segment is quite small, I suspect congenitally. The patient has bilate ral patent communicating arteries. On the right side the communicating artery contributes the majori ty of the flow to the posterior cerebral circulation. There is bilateral mild stenoses of both P2 se gments as they spin around the brain stem. Both internal carotid arteries are patent. The internal carotid bifurcations are unremarkable. Ther e is a smaller P1 on the right than left. Both P2 segments unremarkable. The middle cerebral branch es are unremarkable. CONCLUSION: Clearly narrowing of the posterior vessels with at least 50% stenosis involving the distal right vert ebral artery with some additional questionable filling defect in the more distal vertebral artery, co uld be some thrombus. Left vertebral artery is not identified. The majority of the posterior cereb ral flow however comes from both patent posterior communicating arteries. Please see above. Eben Mejia MD on December 25, 2016 at 9:15 Board Certified Radiologist. This report was verified electronically.
--- NOTE | 2016-12-25 09:29 | RADRPT ---
EXAM DATE/TIME: 12/25/2016 08:21 This report includes an Addendum and supersedes previous reports for this exam. [facility] COMPARISON: No previous studies available for comparison. INDICATIONS : Generalized weakness since Thursday. CONTRAST: 20 cc Omniscan (gadodiamide) IV MEDICAL HISTORY : Hypertension. SURGICAL HISTORY : Hysterectomy. Cholecystectomy. ENCOUNTER: Subsequent ACUITY: 4-6 days PAIN SCORE: 0/10 LOCATION: cranial TECHNIQUE: Multiplanar, multisequence MRI of the brain was performed both prior to and following the administrat ion of paramagnetic contrast. FINDINGS: CEREBRUM: The ventricles are normal for age. No evidence of midline shift, mass lesion, hemorrhage or acute in farction. No extraaxial fluid collections are seen. The pituitary gland and suprasellar cistern are normal in configuration. WHITE MATTER: No significant signal abnormalities are seen in the white matter. POSTERIOR FOSSA: The cerebellum and brainstem are intact. The 4th ventricle is midline. The cerebellopontine angle is unremarkable. The cerebellar tonsils are normal in position. DIFFUSION IMAGING: No focal areas of restricted diffusion are seen. No evidence of acute infarction. EXTRACRANIAL: The visualized portions of the orbits and paranasal sinuses are unremarkable. POST-CONTRAST: 1.9 cm extra-axial enhancing mass in the low left parietal region and a 5 mm area in the left falx co nsistent with small meningiomas. No abnormal areas of parenchymal enhancement. No evidence of blood -brain barrier breakdown. CONCLUSION: 2 meningioma are noted. No evidence of intracranial hemorrhage, stroke, or edema. Eben Mejia MD on December 25, 2016 at 9:25 Board Certified Radiologist. This report was verified electronically. ADDENDUM: The 5 mm meningioma noted is along the tentorium not the falx. Eben Mejia MD on December 25, 2016 at 10:54 Board Certified Radiologist. This report was verified electronically.
--- NOTE | 2016-12-25 09:48 | RADRPT ---
EXAM DATE/TIME: 12/25/2016 08:21 [facility] COMPARISON: No previous studies available for comparison. INDICATIONS : Generalized weakness since Thursday. CONTRAST: 20 cc Omniscan (gadodiamide) IV MEDICAL HISTORY : Hypertension. SURGICAL HISTORY : Hysterectomy. Cholecystectomy. ENCOUNTER: Subsequent ACUITY: 4-6 days PAIN SCORE: 0/10 LOCATION: cranial Percent stenosis is calculated using the diameter of the stenotic region over the diameter of the nor mal distal internal carotid artery. TECHNIQUE: Bolus infused MRA of the extracranial circulation was performed using a neurovascular coil. Post pro cessing was performed including rotating subvolume maximum intensity projections of each carotid ino ry, rotating full volume maximum intensity projections of both carotid arteries, sagittal and coronal sliding thin slab reformations of each carotid artery, and left oblique sliding thin slab reformatio n through the aortic arch to include the origin of the arch branch vessels. FINDINGS: AORTIC ARCH: There is a three vessel origin of the great vessels from the aorta. No evidence of ostial narrowing. RIGHT CAROTID: The common carotid artery is intact. The carotid bulb has a normal configuration without ulceration or narrowing. The internal carotid artery lumen is smooth without stenosis. The external carotid ar blaine is intact. LEFT CAROTID: The common carotid is widely patent. There is mild stenosis in the origin of the left internal. This does not appear hemodynamically significant. VERTEBRALS: The right vertebral is patent. There is area of mild stenosis in its distal segment. The basilar is p atent. The left vertebral artery is not identified and presumed occluded. CONCLUSION: 1. Minimal stenosis in the origin of the left internal carotid. 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 Bret Escobar MD on December 25, 2016 at 9:44 Board Certified Radiologist. This report was verified electronically.
[2016-12-25] MEDS ORDERED: GADODIAMIDE PF 287 MG/ML 20 ML VIAL (for RAD MRI) IV ONE (09:51)
[2016-12-25] MEDS ORDERED: SOD PHOSPHATE/SOD BIPHOSPHATE (ADULT) ENEMA 133ML PR ONE (10:15)
[2016-12-25 11:30] LABS: BLOOD, URINE SMALL (NEG); GLUCOSE,URINE NEG (NEG); KETONE, URINE 10 mg/dL (NEG); NITRITE,URINE NEG (NEG); SQUAMOUS EPITHELIAL CELL URINE 1 /hpf (0-5); URINE COLOR YELLOW (YELLW/STRAW)
[2016-12-25 11:39] LABS: COMMENT (UR) CATH-CULT NOT IND; CULTURE IF INDICATED CATH CULTURE NOT IND
--- NOTE | 2016-12-25 13:23 | RADRPT ---
EXAM DATE/TIME: 12/25/2016 11:04 [facility] COMPARISON: No previous studies available for comparison. INDICATIONS : Cardiovascular accident. MEDICAL HISTORY : Gastroesophageal reflux disease. Congestive heart failure. Hypercholesterolemia. Hypertension. Renal disfuction. Bilateral frozen shoulders. SURGICAL HISTORY : Appendectomy. Cholecystectomy. Hysterectomy. Cataract repair with laser. ENCOUNTER: Initial ACUITY: 1 day PAIN SCORE: 5/10 LOCATION: Bilateral neck PEAK SYSTOLIC VELOCITIES (cm/sec): ICA/CCA RATIO: Right: 1.1 Left: 1.5 ICA: Right: 119 Left: 137 CCA: Right: 108 Left: 89 ECA: Right: 96 Left: 102 VERTEBRAL: Right: 79 antegrade Left: 29 antegrade Elevated flow velocities and ICA/CCA ratios have been found to correlate with increased degrees of vessel stenosis, calculated as percentage of diameter relative to a normal segment of distal ICA/CCA FINDINGS: RIGHT CAROTID: No significant stenosis is visualized. Moderate plaque. The waveforms are within normal limits. LEFT CAROTID: No significant stenosis is visualized. Moderate plaque. The waveforms are within normal limits. VERTEBRAL ARTERIES: Antegrade flow is seen in both vertebral arteries. MISCELLANEOUS: None. CONCLUSION: 1. 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 2. No significant stenosis of the right internal carotid artery. Mejia Erickson MD on December 25, 2016 at 13:21 Board Certified Radiologist. This report was verified electronically.
--- NOTE | 2016-12-25 13:57 | HHI.FPPN ---
Subjective Remarks Ms Bazzi was sitting up in bed this morning, son at bedside. Had neck pain is improved, she is able to move her head up and down while sitting up in bed. However, her son states that she is unable to keep her head up when walking. She does not have any chest pain. (Cheri Gil MD R1) Objective Vitals Vital Signs Date Time Temp Pulse Resp B/P Pulse Ox O2 Delivery O2 Flow Rate FiO2 12/25/16 12:00 98.2 69 16 165/65 98 12/25/16 08:00 98.9 78 16 171/77 96 12/25/16 07:44 79 12/25/16 04:00 98.5 81 18 174/77 94 12/25/16 00:00 98.5 88 18 167/71 93 12/24/16 20:00 75 12/24/16 20:00 98.2 73 18 175/73 96 12/24/16 18:06 20 12/24/16 17:00 98.1 80 18 204/88 97 12/24/16 16:21 74 16 168/82 99 12/24/16 14:32 73 17 174/88 98 Room Air I/O 12/24/16 12/24/16 12/24/16 12/25/16 12/25/16 12/25/16 07:00 15:00 23:00 07:00 15:00 23:00 Intake Total 448 ml 480 ml Balance 448 ml 480 ml Intake Oral 240 ml 480 ml IV Total 208 ml # Voids 2 3 # Bowel Movements 0 0 (Cheri Gil MD R1) Result Diagram: 12/25/16 0654 12/24/16 2245 Imaging Last Impressions Neck Magnetic Resonance Angiography 12/25/16706 Signed Impressions: Service Date/Time: December 08:21 - CONCLUSION: 1. Minimal stenosis in the origin of the left internal carotid. 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 Bret Escobar MD Head Magnetic Resonance Angiography 12/25/16706 Signed Impressions: Service Date/Time: December 08:21 - CONCLUSION: Clearly narrowing of the posterior vessels with at least 50%% stenosis involving the distal right vertebral artery with some additional questionable filling defect in the more distal vertebral artery, could be some thrombus. Left vertebral artery is not identified. The majority of the posterior cerebral flow however comes from both patent posterior communicating arteries. Please see above. Eben Mejia MD Brain MRI 12/25/16 0707 Signed Impressions: Service Date/Time: December 08:21 - CONCLUSION: 2 meningioma are noted. No evidence of intracranial hemorrhage, stroke, or edema. Eben Mejia MD ADDENDUM: The 5 mm meningioma noted is along the tentorium not the falx. Eben Mejia MD Carotid Artery Ultrasound 12/25/16 0000 Signed Impressions: Service Date/Time: December 11:04 - CONCLUSION: 1. 50-69%% stenosis within the left internal carotid artery. 2. No significant stenosis of the right internal carotid artery. Mejia Erickson MD Abdomen/Pelvis CT 12/25/16 0000 Signed Impressions: Service Date/Time: December 02:21 - CONCLUSION: 1. Small pericardial effusion similar in size to June 2016. 2. New small right effusion with dependent atelectasis in both lungs. 3. Rectal constipation. Cholecystectomy. Chava Katz MD Abdomen Ultrasound 12/24/16 1528 Signed Impressions: Service Date/Time: Saturday, December 24, 2016 15:24 - CONCLUSION: 1. No evidence of acute abdominal process. No masses are identified. Domingo Francisco MD Head CT 12/24/16 0946 Signed Impressions: Service Date/Time: Saturday, December 24, 2016 10:36 - CONCLUSION: Negative for an acute process. Triston Escobar MD FACR Chest X-Ray 12/24/1646 Signed Impressions: Service Date/Time: Saturday, December 24, 2016 09:50 - CONCLUSION: 1. No acute cardiopulmonary findings. Bret Escobar MD Neck Ultrasound 12/24/16 0000 Signed Impressions: Service Date/Time: Saturday, December 24, 2016 15:47 - CONCLUSION: No soft tissue abnormality to correspond with mass. The mass may correspond to underlying bone Mejia Erickson MD Cervical Spine CT 12/24/16 0000 Signed Impressions: Service Date/Time: Saturday, December 24, 2016 10:36 - CONCLUSION: Degenerative changes, negative for a fracture. Triston Escobar MD FACR Objective Remarks GENERAL: This is a well-nourished, well-developed patient, in no respiratory distress SKIN: No rashes, ecchymoses or lesions. Cool and dry HEAD: Atraumatic. Normocephalic. No temporal or scalp tenderness. EYES: Pupils equal round and reactive. Extraocular motions intact. No scleral icterus. No injection or drainage ENT: Able to flex and extend her neck while seated in bed. Uvula midline. Airway patent NECK: Trachea midline. No JVD or lymphadenopathy. Supple, nontender, no meningeal signs CARDIOVASCULAR: Regular rate and rhythm without murmurs, gallops, or rubs RESPIRATORY: Clear to auscultation. Breath sounds equal bilaterally. No wheezes , rales, or rhonchi GASTROINTESTINAL: Abdomen soft, non-tender, nondistended. No hepato-splenomegaly , or palpable masses. No guarding MUSCULOSKELETAL: Extremities without clubbing, cyanosis, or edema. No joint tenderness, effusion, or edema noted. Can lift lower extremities off from the bed NEUROLOGICAL: Awake and alert. Cranial nerves II through XII intact. Motor and sensory grossly within normal limits. Five out of 5 muscle strength in all muscle groups. Slow speech. (Cheri Gil MD R1) A/P Assessment and Plan Patient is an 86-year-old female with a past medical history of hypertension, renal dysfunction, and borderline diabetes that presents with a chief complaint of neck pain of 5 days duration after performing neck physical therapy exercises. Differential diagnosis includes acute cervical fracture, exacerbation of chronic degenerative disease of the spine, CVA, muscle strain, and ligament strain. Troponin 1 was elevated at 0.14. Patient was admitted for ACS rule out and stroke rule out due to neck manipulation. (Cheri Gil MD R1) Attending Attestation Patient seen and examined with the resident team. Case reviewed and discussed Agree with plan of care as discussed with me and documented in the resident note. Appreciate neurology expertise/recommendations. (Kaylee Mcgowan MD) Problem List: (1) NSTEMI (non-ST elevated myocardial infarction) Status: Acute Plan: -Patient denies chest pain or shortness of breath -EKG 2, CKMB 2 WNL. Troponin 3: 0.14, 0.13, 0.14 (2) Acute neck pain Status: Acute Plan: -Acute neck pain of 5 days duration -CT C-spine negative for acute fracture, shows chronic degenerative changes -MRA brain shows occlusion of the left vertebral artery and questionable thrombus in the distal right vertebral artery -MRI brain is negative for intracranial hemorrhage, stroke or edema but shows 2 meningiomas -Neurology consulted (3) UTI (urinary tract infection) Status: Acute Plan: -Urinalysis shows large leukocyte esterase, 36 WBC, 6 rbc, small occult blood, 100 protein -Patient received one dose of Levaquin 500 mg IV in the ED -Will start ciprofloxacin 400 mg every 12 hours -Ultrasound abdomen complete to assess for kidneys (4) Abdominal pain Status: Acute Plan: -Abdominal pain of 4-5 months duration -Located mostly in the right lower quadrant -History of diarrhea 5 days prior -Will order ultrasound of abdomen -CT abdomen and pelvis shows rectal constipation: Fleets enema was attempted with no outputs, stool is too hard and too high for manual disimpaction, will try magnesium citrate -MiraLAX when necessary on board -Will order stool studies if diarrhea recurs (5) Renal insufficiency Status: Acute Plan: -History of chronic insufficiency -Last known creatinine 1.10 in June 2016 -Abdominal ultrasound shows normal size, shape and echogenicity of the kidneys bilaterally -Continue maintenance fluids NS @ 100 mls/hr (6) Hypertension Status: Acute Plan: -Continue home losartan 50 mg by mouth twice a day -Continue home labetalol 100 mg TID -Clonidine 0.1 mg every 6 hours when necessary SBP >= 180, DBP >= 100 -Lasix 40 mg daily by mouth when necessary edema (7) Hyperlipidemia Status: Acute Plan: -Continue pravastatin 40 mg by mouth at bedtime (8) FEN/DVT PPX/GI PPX Status: Acute Plan: Fluids: NS @ 100 mls/hr Electrolytes: Will monitor and replace as needed Nutrition: Renal diet, mechanical soft DVT Prophylaxis: Heparin subcutaneous every 12 hours GI Prophylaxis: Protonix 40 mg PO twice a day (Eko,Cheri Dorantes MD R1) Problem Qualifiers (1) UTI (urinary tract infection): Qualified Code: N30.01 - Acute cystitis with hematuria (2) Abdominal pain: Qualified Code: R10.31 - Right lower quadrant abdominal pain (3) Hypertension: Qualified Code: I10 - Essential hypertension (4) Hyperlipidemia: Qualified Code: E78.5 - Hyperlipidemia, unspecified hyperlipidemia type Cheri Gil MD R1 Dec 25, 2016 13:57 Kaylee Mcgowan MD Dec 25, 2016 21:48
[2016-12-25] MEDS ORDERED: MAGNESIUM CITRATE SOLN 300 ML BTL PO ONE (15:00)
[2016-12-25] MEDS: ONDANSETRON HCL 4 MG/2 ML VIAL IV PRN (15:13)
[2016-12-25] MEDS: cloNIDine HCL 0.1 MG TAB PO PRN (16:47)
[2016-12-25] MEDS: ASPIRIN EC 325 MG TABEC PO SCH (17:56)
--- NOTE | 2016-12-25 18:02 | MB ---
cc: HANH VICTORIA DATE OF CONSULTATION: 12/25/2016. HISTORY OF PRESENT ILLNESS: This is an 86-year-old right-handed woman with a history of hypertension, hypercholesterolemia, congestive heart failure and chronic renal insufficiency, a little bit of short-term memory problems. She has had neck pain for years and recently she had had some failure to thrive and was not walking so well and physical therapy came in and worked on her last Thursday, on her neck specifically, and then on Thursday she could not pick her head up and that has continued all week and she subsequently came into the hospital. Her blood pressure was very high at that time. She started clonidine about a month ago. She also may have a urinary tract infection. She is in general a soft-spoken woman. REVIEW OF SYSTEMS According her son, no diabetes, CA, stent, angioplasty, atrial fibrillation, Coumadin, hepatic or pulmonary disease, thyroid disease, lupus, ulcer, cancer seizure, stroke. SOCIAL HISTORY: She is not a smoker or a drinker. She lives with her son. FAMILY HISTORY: Negative for cancer, seizure or stroke. ALLERGIES: 1. PENICILLIN. 2. SULFA. 3. TETANUS. MEDICATIONS: She is on: 1. Ultram. 2. Zofran. 3. Meclizine. 4. Hydralazine. 5. Nexium. 6. Pravastatin. 7. Coreg. 8. Losartan. 9. Some eye drops. No new medicines have been started. PHYSICAL EXAMINATION: VITAL SIGNS: Afebrile, 165/65, highest blood pressure was 204/88 and today 165/65. Pulse of 81. Respiratory rate 16. NECK: There were no carotid bruits. HEART: Regular rhythm. I do not detect a murmur. NEUROLOGICAL EXAMINATION: She is awake and alert. Somewhat soft-spoken and does not give me great answers but she does not know the year but she knows the town she lives in and where she lives. She follows commands fairly well. Pupils are equal. Visual gutiérrez are full. Extraocular movements intact without nystagmus. Face is symmetric. Tongue was midline. No drift. She had normal strength in upper and lower extremities bilaterally. DTRs are 1+ symmetric. Toes are downgoing bilaterally. There is no ankle clonus. Pin prick was intact throughout including the occiput bilaterally. She is not ataxic on [id number]. Speech is fluent. She is not aphasic. She does however have difficulty where she complains of some right posterior cervical discomfort and sitting bolt upright, she cannot seem to get her head up off her chest, although if I have her slightly leaning back, ever so slightly, she can put and give me good force with her neck extensors. Sternocleidomastoid work well bilaterally and she can turn her head to either side. I do not detect any cervical masses LABORATORY DATA: CBC is normal. Troponin was elevated 0.14. Albumin is low at 3. Liver function tests, CPK, magnesium, calcium, phosphorus are normal. Creatinine is 1.01, GFR is 52. Basic metabolic profile generally unremarkable. Glucose 135. Coags are normal. Urinalysis showed a large amount of leukocyte esterase, 36 white cells. CBC is generally unremarkable. Mild anemia. IMAGING STUDIES: She had an MRI of the brain that showed no infarcts. It shows a left posterior parietal meningioma extra-axial and what appears to be a small possible meningoma on the left tentorial region. MRA of the neck shows she has about a 50% stenosis of the left internal carotid artery. She is right vertebral-dominant. She has some disease, I would say about a 50% stenosis or less of the distal vertebral artery on the right. She had a CT scan of her abdomen that did not show very much. She had a CT scan of her cervical spine which was read as some diffuse degenerative joint disease on review of those films. I do not see anything major on the cervical spine CT. No spinal stenosis is noted. No major pathology in the posterior neck muscles is seen. 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 I think we should just do an MRI of the soft tissues of the neck to make sure there is nothing seen there. Will put a soft collar on her. If she is leaned back ever so slightly, she actually has pretty good strength in her neck extensors. We could consider, if this does not seem to resolve, Botox in the future. I will try her on a little bit of Sinemet at this time and see if that would help and they are treating her urinary tract infection. I will be following her with you in the hospital. Will just check a few other blood tests on her. Will check an LDL with the carotid disease. I do not think that it is symptoms or that the vertebrobasilar system is symptomatic; in fact, her son tells me they have known about that for a while. We are going to have physical therapy work with her, get her soft collar and I would defer to the medical team on the troponins being elevated, check a lipid profile. Note, I do not see any spasm of the anterior neck muscles. MD GORAN Joyner/RASHID /5:22 PM /5:41 PM
--- NOTE | 2016-12-25 19:02 | EC ---
Study Study Date:12/25/2016 STUDY CONCLUSIONS SUMMARY - Left ventricle: The cavity size was normal. Wall thickness was normal. Systolic function was normal. The estimated ejection fraction was in the range of 55% to 60%. Wall motion was normal; there were no regional wall motion abnormalities. - Mitral valve: Valve area by pressure half-time: 2.24cm^2. - Pulmonary arteries: PA peak pressure: 43mm Hg (S). If LV function is below 40, please consider prescribing an ACEI or ARB or document rationale for non-use. PROCEDURE DATA STUDY STATUS: Elective. Procedure: Transthoracic echocardiography. Image quality was poor. Scanning was performed from the parasternal, apical, and subcostal acoustic windows. Study completion: The patient tolerated the procedure well. Transthoracic echocardiography. M-mode, complete 2D, complete spectral Doppler, and color Doppler. Patient status: Inpatient. CARDIAC ANATOMY LEFT VENTRICLE: The cavity size was normal. Wall thickness was normal. Systolic function was normal. The estimated ejection fraction was in the range of 55% to 60%. Wall motion was normal; there were no regional wall motion abnormalities. AORTIC VALVE: Trileaflet; normal thickness leaflets. Doppler: Transvalvular velocity was within the normal range. There was no stenosis. No regurgitation. AORTA: Aortic root: The aortic root was normal in size. MITRAL VALVE: Structurally normal valve. Doppler: Transvalvular velocity was within the normal range. There was no evidence for stenosis. No regurgitation. Valve area by pressure half-time: 2.24cm^2. LEFT ATRIUM: The atrium was normal in size. RIGHT VENTRICLE: The cavity size was normal. Wall thickness was normal. PULMONIC VALVE: Doppler: Transvalvular velocity was within the normal range. There was no evidence for stenosis. No regurgitation. TRICUSPID VALVE: Structurally normal valve. Doppler: Transvalvular velocity was within the normal range. No regurgitation. PULMONARY ARTERY: The main pulmonary artery was normal-sized. Systolic pressure was within the normal range. RIGHT ATRIUM: The atrium was normal in size. PERICARDIUM: There was no pericardial effusion. SYSTEMIC VEINS: Inferior vena cava: The vessel was normal in size. BASIC MEASUREMENTS ADULT Normal Left ventricle LV internal dimension, ED, chordal level, *32 mm 43-52 PLAX LV internal dimension, ES, chordal level, *22.3 mm 23-38 PLAX Fractional shortening, chordal level, PLAX 30 % >29 LV posterior wall thickness, ED 11.3 mm IVS/LVPW ratio, ED 1.12 <1.3 Ventricular septum Septal thickness, ED 12.6 mm Aortic valve Leaflet separation 17 mm 15-26 Right ventricle RV internal dimension, ED, PLAX 26.6 mm 19-38 BASIC MEASUREMENTS ADULT Normal Aortic valve Leaflet separation 17 mm 15-26 Aorta Root diameter, ED 30 mm 20-37 Left atrium Anterior-posterior dimension, ES 31 mm 19-40 LA/aortic root ratio 1.03 DOPPLER MEASUREMENTS ADULT Normal Main pulmonary artery Pressure, S *43 mm Hg =30 Mitral valve Pressure half-time 98 ms Valve area, pressure half-time 2.24 cm^2 Tricuspid valve Regurgitant peak velocity 286 cm/s Peak RV-RA gradient, S 33 mm Hg Maximal regurgitant velocity 286 cm/s Systemic veins Estimated CVP 10 mm Hg Right ventricle RV pressure, S *43 mm Hg <30 LEGEND: Mean values are shown as u=mean value. Asterisk (*) najera values outside specified normal range. Prepared and signed by Aiden Watson [id number]
[2016-12-25] MEDS: LATANOPROST 0.005% OPHT SOLN 2.5 ML BTL EACH EYE SCH (21:00)
--- NOTE | 2016-12-25 23:48 | EKG ---
Date Performed: 12/24/2016 Time Performed: 22:21:57 PTAGE: 86 years EKG: Sinus rhythm SEPTAL MYOCARDIAL INFARCTION , PROBABLY OLD ABNORMAL ECG PREVIOUS TRACING : 12/24/2016 16.03 Compared to prior tracing no significant change DOCTOR: Alonso Osuna Interpretating Date/Time 12/25/2016 23:46:32
--- NOTE | 2016-12-25 23:57 | EKG ---
Date Performed: 12/24/2016 Time Performed: 16:03:30 PTAGE: 86 years EKG: Sinus rhythm BORDERLINE RIGHT AXIS DEVIATION SEPTAL MYOCARDIAL INFARCTION ABNORMAL ECG PREVIOUS TRACING : 12/24/2016 10.30 Compared to prior tracing no significant change DOCTOR: Alonso Osuna Interpretating Date/Time 12/25/2016 23:56:22
--- NOTE | 2016-12-26 00:05 | EKG ---
Date Performed: 12/24/2016 Time Performed: 10:30:49 PTAGE: 86 years EKG: SUPRAVENTRICULAR RHYTHM SEPTAL MYOCARDIAL INFARCTION ABNORMAL ECG PREVIOUS TRACING : 07/01/2016 11.07 Compared to prior tracing no significant change DOCTOR: Alonso Osuna Interpretating Date/Time 12/26/2016 00:05:33
[2016-12-26] MEDS: SODIUM CHLOR 0.9% 1000 ML INJ 1,000 ML IV SCH ×5 (01:58→18:00)
[2016-12-26 04:00] VITALS: BP 141/62; PULSE 76; RESP 16; TEMP 98.2; O2SAT 96
[2016-12-26] MEDS: LABETALOL HCL 100 MG TAB PO SCH ×3 (05:32→21:04)
[2016-12-26 08:00] VITALS: BP 197/84; PULSE 69; PULSE 70; RESP 16; TEMP 98; O2SAT 97
[2016-12-26] MEDS: ASPIRIN EC 325 MG TABEC PO SCH (08:16)
[2016-12-26] MEDS: PANTOPRAZOLE SOD 40 MG DELAYED RELEASE TAB PO SCH ×2 (08:16→21:04)
[2016-12-26] MEDS: LOSARTAN 50 MG TAB PO SCH ×2 (08:16→21:05)
[2016-12-26] MEDS: POLYETHYLENE GLYCOL 17 GM PKG PO SCH (08:16)
[2016-12-26] MEDS: POTASSIUM CHLORIDE 20 MEQ CONTROLLED RELEASE TAB PO SCH (08:16)
[2016-12-26] MEDS: CIPROFLOXACIN 400 MG PREMIX 200 ML IV SCH (08:17)
[2016-12-26 08:18] LABS: AUTOMATED NEUTROPHIL # 3.9 TH/MM3 (1.8-7.7); BASOPHIL % 0.3 % (0.0-2.0); EOSINOPHIL # 0.1 TH/MM3 (0-0.4); EOSINOPHIL % 1.7 % (0.0-4.0); HEMATOCRIT 33.8 % (35.0-46.0); HEMO FLAGS DIFF FINAL; LYMPH % 17.7 % (9.0-44.0); MEAN CELL VOLUME 90.2 FL (80.0-100.0); MEAN CORPUSCULAR HEMOGLOBIN 30.7 PG (27.0-34.0); MONO % 11.6 % (0.0-8.0); NEUT % 68.7 % (16.0-70.0); PLATELET COUNT 296 TH/MM3 (150-450); RED BLOOD COUNT 3.75 MIL/MM3 (4.00-5.30); RED CELL DISTRIBUTION WIDTH 12.7 % (11.6-17.2); WHITE BLOOD COUNT 5.7 TH/MM3 (4.0-11.0)
[2016-12-26] MEDS: HEPARIN SODIUM - SQ 10,000 UNITS/ML VIAL SQ SCH ×2 (08:18→21:04)
[2016-12-26 08:36] LABS: ALKALINE PHOSPHATASE 45 U/L (45-117); ALT (GPT) 15 U/L (10-53); ANION GAP 7 MEQ/L (5-15); AST (GOT) 12 U/L (15-37); BICARBONATE 28.2 MEQ/L (21.0-32.0); BLOOD UREA NITROGEN 10 MG/DL (7-18); CHLORIDE 99 MEQ/L (98-107); GLOMERULAR FILTRATION RATE 55 ML/MIN (>89); POTASSIUM 3.8 MEQ/L (3.5-5.1); SODIUM (NA) 134 MEQ/L (136-145); TOTAL BILIRUBIN ADULT 0.4 MG/DL (0.2-1.0)
[2016-12-26 08:58] LABS: FREE T4 1.68 NG/DL (0.76-1.46); HDL CHOLESTEROL 42.5 MG/DL (40.0-60.0); LDL CHOLESTEROL 29 MG/DL (0-99)
[2016-12-26] MEDS ORDERED: GADODIAMIDE PF 287 MG/ML 5 ML VIAL (for RAD MRI) IV ONE (09:54)
[2016-12-26 10:16] LABS: RAPID PLASMA REAGIN SCREEN NON-REACTIVE (NON-REACTVE)
--- NOTE | 2016-12-26 11:14 | HHI.FPPN ---
Subjective Remarks Patient interviewed with son at the bedside. Both agree that having a bowel movement helped greatly. She thinks her neck collar is helping her. She is a little bit better, but still very uncomfortable. No chest pain or shortness of breath. She had 2 bowel movements yesterday. She continues to have abdominal discomfort and nausea which is relatively unchanged. (Chintan Paez MD R2) Objective Vitals Vital Signs Date Time Temp Pulse Resp B/P Pulse Ox O2 Delivery O2 Flow Rate FiO2 12/26/16 08:00 70 12/26/16 04:00 98.2 76 16 141/62 96 12/25/16 23:20 98.4 73 16 169/71 94 12/25/16 21:07 98.4 72 16 153/69 94 12/25/16 20:11 73 12/25/16 19:52 156/68 12/25/16 16:00 97.8 84 18 185/79 96 12/25/16 12:00 98.2 69 16 165/65 98 I/O 12/25/16 12/25/16 12/25/16 12/26/16 12/26/16 12/26/16 07:00 15:00 23:00 07:00 15:00 23:00 Intake Total 480 ml 480 ml 1163 ml 922 ml Output Total 0 ml Balance 480 ml 480 ml 1163 ml 922 ml Intake Oral 480 ml 480 ml 120 ml 240 ml IV Total 1043 ml 682 ml Output Stool Total 0 ml # Voids 3 6 3 6 # Bowel Movements 0 0 0 6 (Chintan Paez MD R2) Result Diagram: 12/26/16 0759 12/26/16 0759 Objective Remarks GENERAL: This is an elderly appearing female sitting upright in bed with a neck collar in place. Very soft spoken SKIN: No rashes, ecchymoses or lesions. Cool and dry HEAD: Atraumatic. Normocephalic. No temporal or scalp tenderness. EYES: Pupils equal round and reactive. Extraocular motions intact. No scleral icterus. No injection or drainage ENT: Neck collar in position. When removed, patient can touch chin to chest chin to the shoulders on both sides. Uvula midline. Airway patent NECK: Trachea midline. No JVD or lymphadenopathy. Supple, nontender, no meningeal signs CARDIOVASCULAR: Regular rate and rhythm without murmurs, gallops, or rubs RESPIRATORY: Clear to auscultation. Breath sounds equal bilaterally. No wheezes , rales, or rhonchi GASTROINTESTINAL: Abdomen soft, non-tender, nondistended. No hepato-splenomegaly , or palpable masses. No guarding MUSCULOSKELETAL: Extremities without clubbing, cyanosis, or edema. No joint tenderness, effusion, or edema noted. Can lift lower extremities off from the bed NEUROLOGICAL: Awake and alert. Cranial nerves II through XII intact. Motor and sensory grossly within normal limits. Five out of 5 muscle strength in all muscle groups. Slow speech. (Chintan Paez MD R2) A/P Assessment and Plan Patient is an 86-year-old female with a past medical history of hypertension, renal dysfunction, and borderline diabetes that presents with a chief complaint of neck pain of 5 days duration after performing neck physical therapy exercises. Neurology consulted for MRI/MRA findings. Discharge Planning Pending clinical improvement (Chintan Paez MD R2) Attending Attestation Patient seen and examined. Case reviewed and discussed Agree with plan of care as discussed with me and documented in the resident note. (Kaylee Mcgowan MD) Problem List: (1) NSTEMI (non-ST elevated myocardial infarction) Status: Acute Plan: -Patient denies chest pain or shortness of breath -EKG 2, CKMB 2 WNL. Troponin 3: 0.14, 0.13, 0.14 Patient is not a candidate for cardiac catheterization. Plan to Optimize medical management as tolerated. (2) Acute neck pain Status: Acute Plan: Concern for stroke versus TIA versus other -Neurology consulted Soft neck collar. Obtain MRI of the soft tissues and neck Trial Sinemet; consider Botox if this does not resolve Check blood work: RPR nonreactive, CHAGO pending, thiamine, methylmalonic acid Images: CT C-spine negative for acute fracture, shows chronic degenerative changes MRA brain shows occlusion of the left vertebral artery and questionable thrombus in the distal right vertebral artery MRI brain is negative for intracranial hemorrhage, stroke or edema but shows 2 known meningiomas Echo shows 55-60% ejection fraction. No wall motion abnormalities. Normal left ventricular size. (3) Abdominal pain Status: Acute Plan: CT abdomen and pelvis: Showed Rectal constipation. Improved after bowel movement but still having mild abdominal discomfort Consider gastroenterology consultation Likely related to constipation (see below) (4) Constipation Status: Acute Plan: Continue MiraLAX Fleets enema when necessary (5) Hypertension Status: Chronic Plan: Pressures have continued to be elevated. -Continue home losartan 50 mg by mouth twice a day -Continue home labetalol 100 mg TID -Start amlodipine 5 mg by mouth daily -Clonidine 0.1 mg every 6 hours when necessary SBP >= 160, DBP >= 90 (6) Hyperlipidemia Status: Chronic Plan: -Continue pravastatin 40 mg by mouth at bedtime (7) FEN/DVT PPX/GI PPX Status: Acute Plan: Fluids: NS @ 100 mls/hr Electrolytes: Will monitor and replace as needed Nutrition: Per speech therapy. Regular diet; thin liquids DVT Prophylaxis: Heparin subcutaneous every 12 hours GI Prophylaxis: Protonix 40 mg PO twice a day (8) UTI (urinary tract infection) Status: Resolved Plan: 12/24 Original urinalysis likely contaminant: Large leukocyte esterase, 36 white blood cells, 25 squamous 12/25 catheter urinalysis: Within normal limits. Discontinue ciprofloxacin. (Chintan Paez MD R2) Problem Qualifiers (1) Abdominal pain: Qualified Code: R10.31 - Right lower quadrant abdominal pain (2) Hypertension: Qualified Code: I10 - Essential hypertension (3) Hyperlipidemia: Qualified Code: E78.5 - Hyperlipidemia, unspecified hyperlipidemia type (4) UTI (urinary tract infection): Qualified Code: N30.01 - Acute cystitis with hematuria Chintan Paez MD R2 Dec 26, 2016 11:14 Kaylee Mcgowan MD Dec 26, 2016 16:27
[2016-12-26] MEDS: ONDANSETRON HCL 4 MG/2 ML VIAL IV PRN ×2 (11:21→18:47)
--- NOTE | 2016-12-26 11:57 | RADRPT ---
EXAM DATE/TIME: 12/26/2016 09:01 [facility] COMPARISON: No previous studies available for comparison. INDICATIONS: Inability to support head after physical therapy on Thursday. CONTRAST: 11 cc Omniscan (gadodiamide) IV MEDICAL HISTORY: Hypertension. SURGICAL HISTORY: Hysterectomy. Cholecystectomy. ENCOUNTER: Subsequent ACUITY: 4-6 days PAIN SCORE: 3/10 LOCATION: Neck TECHNIQUE: Multiplanar, multisequence MRI examination of the cervical spine was performed. FINDINGS: By MRI the marrow signal in the cervical vertebrae are homogeneous and normal. Signal intensity in t he cervical cord is normal. There are mild degenerative changes at C1 and C2. C2-C3: There is mild uncinate ridging present without significant spinal stenosis, neural foramina adequate. C3-C4: Mild uncinate ridging is present without spinal stenosis. C4-C5: There is mild central disc bulging with mild uncinate ridging present. There is minimal bilateral ne ural foramina encroachment on the right. There is no significant spinal stenosis. C5-C6: Mild uncinate ridging is present with moderate bilateral neural foramina encroachment. C6-C7: Uncinate ridging is present with bilateral neural foramina encroachment. There is no significant spi nal stenosis. C7-T1: Uncinate ridging is present with mild bilateral neural foramina encroachment. Following intravenous administration of gadolinium there is no abnormal contrast enhancement. CONCLUSION: 1. Degenerative changes as described above without radiographically significant spinal stenosis. 2. There is no evidence for increase signal in the intraspinal ligaments to suggest ligamentous inju ry. Triston Escobar MD FACR on December 26, 2016 at 11:25 Board Certified Radiologist. This report was verified electronically.
[2016-12-26 12:00] VITALS: BP 176/76; PULSE 76; RESP 18; TEMP 98.3; O2SAT 97
[2016-12-26] MEDS: ACETAMINOPHEN 325 MG TAB PO PRN (12:07)
--- NOTE | 2016-12-26 12:16 | RADRPT ---
EXAM DATE/TIME: 12/26/2016 09:01 [facility] COMPARISON: CT CERVICAL SPINE W/O CONTRAST, December 24, 2016, 10:36. INDICATIONS : Inability to support head after physical therapy on Thursday. CONTRAST: 11 cc Omniscan (gadodiamide) IV MEDICAL HISTORY : Hypertension. SURGICAL HISTORY : Hysterectomy. Cholecystectomy. ENCOUNTER: Subsequent ACUITY: 4-6 days PAIN SCORE: 3/10 LOCATION: neck TECHNIQUE: Multisequence, multiplanar MRI examination was performed. FINDINGS: Motion artifact degrades the exam. NASOPHARYNX: The nasopharyngeal airway has a normal configuration. No mucosal thickening or mass is seen. OROPHARYX: The intrinsic muscles of the tongue are symmetric. The tonsillar pillars are intact. The prevertebr al soft tissues are not thickened. LARYNX: The supraglottic, glottic, and infraglottic structures are intact. PARAPHARYNGEAL: The parapharyngeal space is intact. SALIVARY GLANDS: The parotid and submandibular glands are intact. LYMPH NODES: No enlarged or necrotic appearing nodes. THYROID: Homogeneous enhancement without evidence of nodule. BONES: See the MRI of the cervical spine reported separately. POST CONTRAST: No abnormal areas of enhancement seen. CONCLUSION: 1. Examination is degraded by motion artifact. 2. No acute gross abnormality observed. Stephen Elias Jr., MD on December 26, 2016 at 11:08 Board Certified Radiologist. This report was verified electronically.
[2016-12-26 14:39] LABS: ANA SCREEN NEG (NEG)
[2016-12-26] MEDS: amLODIPine BESYLATE 5 MG TAB PO SCH (15:22)
[2016-12-26 16:00] VITALS: BP 160/80; PULSE 65; RESP 18; TEMP 98; O2SAT 97
--- NOTE | 2016-12-26 17:12 | HHI.PR ---
Objective Vital Signs Date Time Temp Pulse Resp B/P Pulse Ox O2 Delivery O2 Flow Rate FiO2 12/26/16 12:00 98.3 76 18 176/76 97 12/26/16 08:00 70 12/26/16 08:00 98.0 69 16 197/84 97 12/26/16 04:00 98.2 76 16 141/62 96 12/25/16 23:20 98.4 73 16 169/71 94 12/25/16 21:07 98.4 72 16 153/69 94 12/25/16 20:11 73 12/25/16 19:52 156/68 I/O 12/25/16 12/25/16 12/25/16 12/26/16 12/26/16 12/26/16 07:00 15:00 23:00 07:00 15:00 23:00 Intake Total 480 ml 480 ml 1163 ml 922 ml 1020 ml Output Total 0 ml Balance 480 ml 480 ml 1163 ml 922 ml 1020 ml Intake Oral 480 ml 480 ml 120 ml 240 ml IV Total 1043 ml 682 ml 1020 ml Output Stool Total 0 ml # Voids 3 6 3 6 # Bowel Movements 0 0 0 6 Result Diagram: 12/26/16 0759 12/26/16 0759 Other Results mri c spine and c soft tissue neg Objective Remarks speech stronger can hold head up better off c collar Assessment and Plan Assessment and Plan imp a bit better ok dc to rehab follow up office collar can be off or on trop inc defer to med team small 2 ? meningioma ashwin repeat mri one month Domingo Chavez MD Dec 26, 2016 17:12
[2016-12-26 20:47] VITALS: BP 181/76; PULSE 81; RESP 18; TEMP 98; O2SAT 96
[2016-12-26 23:00] VITALS: BP 110/62; PULSE 76; RESP 16; TEMP 97.7; O2SAT 100
[2016-12-26] MEDS: LATANOPROST 0.005% OPHT SOLN 2.5 ML BTL EACH EYE SCH (23:47)
[2016-12-27] VITALS (7 sets, daily range): BP systolic 134–183; BP diastolic 66–84; PULSE 63–90; RESP 16–28; TEMP 97.5–98.7; O2SAT 95–99
[2016-12-27] MEDS: LABETALOL HCL 100 MG TAB PO SCH ×3 (04:35→20:52)
[2016-12-27] MEDS: SODIUM CHLOR 0.9% 1000 ML INJ 1,000 ML IV SCH ×4 (04:35→16:38)
[2016-12-27 08:29] LABS: AUTOMATED NEUTROPHIL # 4.5 TH/MM3 (1.8-7.7); BASOPHIL % 0.5 % (0.0-2.0); EOSINOPHIL # 0.1 TH/MM3 (0-0.4); HEMATOCRIT 33.2 % (35.0-46.0); HEMO FLAGS DIFF FINAL; LYMPH % 18.4 % (9.0-44.0); LYMPHOCYTE # 1.2 TH/MM3 (1.0-4.8); MEAN CELL VOLUME 89.6 FL (80.0-100.0); MEAN CORPUSCULAR HGB CONC 34.6 % (32.0-36.0); MONO % 8.9 % (0.0-8.0); NEUT % 70.2 % (16.0-70.0); PLATELET COUNT 259 TH/MM3 (150-450); RED BLOOD COUNT 3.71 MIL/MM3 (4.00-5.30); RED CELL DISTRIBUTION WIDTH 12.8 % (11.6-17.2); WHITE BLOOD COUNT 6.3 TH/MM3 (4.0-11.0)
[2016-12-27] MEDS: ASPIRIN EC 325 MG TABEC PO SCH (08:29)
[2016-12-27] MEDS: LOSARTAN 50 MG TAB PO SCH ×2 (08:29→20:52)
[2016-12-27 08:30] LABS: ALT (GPT) 16 U/L (10-53); ANION GAP 11 MEQ/L (5-15); AST (GOT) 16 U/L (15-37); BICARBONATE 21.9 MEQ/L (21.0-32.0); CHLORIDE 101 MEQ/L (98-107); GLOMERULAR FILTRATION RATE 60 ML/MIN (>89); SODIUM (NA) 134 MEQ/L (136-145)
[2016-12-27] MEDS: amLODIPine BESYLATE 5 MG TAB PO SCH (08:30)
[2016-12-27] MEDS: POTASSIUM CHLORIDE 20 MEQ CONTROLLED RELEASE TAB PO SCH (08:30)
[2016-12-27] MEDS: PANTOPRAZOLE SOD 40 MG DELAYED RELEASE TAB PO SCH ×2 (08:30→20:52)
[2016-12-27] MEDS: POLYETHYLENE GLYCOL 17 GM PKG PO SCH (08:30)
[2016-12-27] MEDS: HEPARIN SODIUM - SQ 10,000 UNITS/ML VIAL SQ SCH ×2 (08:30→20:53)
[2016-12-27 08:32] LABS: ALKALINE PHOSPHATASE 44 U/L (45-117); TOTAL BILIRUBIN ADULT 0.3 MG/DL (0.2-1.0)
[2016-12-27 08:42] LABS: BLOOD UREA NITROGEN 9 MG/DL (7-18)
--- NOTE | 2016-12-27 09:08 | HHI.FPPN ---
Subjective Remarks Pt says she does not feel well. She complains of chest pain that began overnight and per nurse, was intermittently relieved with nitroglycerin, as well as RLQ abdominal pain which has been going on for about 5+ months. She describes the chest pain as "something sitting on her chest." She has not eaten breakfast and complains of nausea. The neck pain is better and she agreed to have the collar removed. (EkoCheri MD R1) Objective Vitals Vital Signs Date Time Temp Pulse Resp B/P Pulse Ox O2 Delivery O2 Flow Rate FiO2 12/27/16 08:00 98.7 90 28 181/78 95 12/27/16 04:07 80 12/27/16 03:50 97.5 73 16 183/79 97 12/26/16 23:00 97.7 76 16 110/62 100 12/26/16 20:47 98.0 81 18 181/76 96 12/26/16 16:00 98.0 65 18 160/80 97 12/26/16 12:00 98.3 76 18 176/76 97 I/O 12/26/16 12/26/16 12/26/16 12/27/16 12/27/16 12/27/16 07:00 15:00 23:00 07:00 15:00 23:00 Intake Total 922 ml 1260 ml 120 ml 120 ml Output Total 800 ml 125 ml 425 ml Balance 922 ml 460 ml -5 ml -305 ml Intake Oral 240 ml 240 ml 120 ml 120 ml IV Total 682 ml 1020 ml Output Urine Total 800 ml 125 ml 425 ml # Voids 6 # Bowel Movements 6 0 1 0 (EkoCheri MD R1) Result Diagram: 12/27/16 0658 12/27/16 0658 Objective Remarks GENERAL: This is an elderly appearing female lying down in bed with a neck collar in place. Very soft spoken SKIN: No rashes, ecchymoses or lesions. Cool and dry HEAD: Atraumatic. Normocephalic. No temporal or scalp tenderness. EYES: Pupils equal round and reactive. Extraocular motions intact. No scleral icterus. No injection or drainage ENT: Neck collar removed, patient able to touch chin to chest chin to the shoulders on both sides. Uvula midline. Airway patent NECK: Trachea midline. No JVD or lymphadenopathy. Supple, nontender, no meningeal signs CARDIOVASCULAR: Regular rate and rhythm without murmurs, gallops, or rubs RESPIRATORY: Clear to auscultation. Breath sounds equal bilaterally. No wheezes , rales, or rhonchi GASTROINTESTINAL: Abdomen soft, slightly tender in the RLQ, nondistended. No hepato-splenomegaly, or palpable masses. No guarding MUSCULOSKELETAL: Extremities without clubbing, cyanosis, or edema. No joint tenderness, effusion, or edema noted. NEUROLOGICAL: Awake and alert. Cranial nerves II through XII intact. Motor and sensory grossly within normal limits. Five out of 5 muscle strength in all muscle groups. Speech less slow today. (Eko,Cheri Dorantes MD R1) A/P Assessment and Plan Patient is an 86-year-old female with a past medical history of hypertension, renal dysfunction, and borderline diabetes that presents with a chief complaint of neck pain of 5 days duration after performing neck physical therapy exercises. Neurology consulted for MRI/MRA findings. Discharge Planning Pending clinical improvement (Cheri Gil MD R1) Attending Attestation Patient seen and examined with the resident team. Case reviewed and discussed Agree with plan of care as discussed with me and documented in the resident note. (Kaylee Mcgowan MD) Problem List: (1) NSTEMI (non-ST elevated myocardial infarction) Status: Acute Plan: -Patient complains of chest pain that began overnight, described as pressure on her chest -Intermittent relieved by nitroglycerin patch -Stat EKG unchanged -Troponin 0.11 -Chest x-ray shows linear opacities more consistent with atelectasis than consolidation Incentive spirometer OOB minimum TID with meals -Possible that chest pain is 2/2 gastric reflux which is known- will order GI cocktail -Consulted cardiology - appreciate recs History on admission: -EKG 2, CKMB 2 WNL. Troponin 3: 0.14, 0.13, 0.14 (2) Acute neck pain Status: Acute Plan: Concern for stroke versus TIA versus other -Neurology consulted Soft neck collar Obtain MRI of the soft tissues and neck Trial Sinemet; consider Botox if this does not resolve Check blood work: RPR nonreactive, CHAGO pending, thiamine, methylmalonic acid Images: CT C-spine negative for acute fracture, shows chronic degenerative changes MRA brain shows occlusion of the left vertebral artery and questionable thrombus in the distal right vertebral artery MRI brain is negative for intracranial hemorrhage, stroke or edema but shows 2 known meningiomas Echo shows 55-60% ejection fraction. No wall motion abnormalities. Normal left ventricular size. (3) Abdominal pain Status: Acute Plan: CT abdomen and pelvis: Showed Rectal constipation. Improved after bowel movement but still having mild abdominal discomfort, mildly TTP in RUQ on exam Consider gastroenterology consultation - last colonoscopy was > 10 years ago in [place] - was normal (4) Constipation Status: Acute Plan: Continue MiraLAX Fleets enema when necessary (5) Hypertension Status: Chronic Plan: Pressures have continued to be elevated -Continue home losartan 50 mg by mouth twice a day -Continue home labetalol 100 mg TID -Start amlodipine 5 mg by mouth daily -Clonidine 0.1 mg every 6 hours when necessary SBP >= 160, DBP >= 90 -Vasotec 1.25mg IV Q8h prn SBP >= 180, DBP >= 100 (6) Hyperlipidemia Status: Chronic Plan: -Continue pravastatin 40 mg by mouth at bedtime (7) FEN/DVT PPX/GI PPX Status: Acute Plan: Fluids: NS @ 50 mls/hr Electrolytes: Will monitor and replace as needed Nutrition: Per speech therapy. Regular diet; thin liquids DVT Prophylaxis: Heparin subcutaneous every 12 hours GI Prophylaxis: Protonix 40 mg PO twice a day (8) UTI (urinary tract infection) Status: Resolved Plan: 12/24 Original urinalysis likely contaminant: Large leukocyte esterase, 36 white blood cells, 25 squamous 3/2 catheter urinalysis: Within normal limits. Discontinue ciprofloxacin (Cheri Gil MD R1) Problem Qualifiers (1) Abdominal pain: Qualified Code: R10.31 - Right lower quadrant abdominal pain (2) Hypertension: Qualified Code: I10 - Essential hypertension (3) Hyperlipidemia: Qualified Code: E78.5 - Hyperlipidemia, unspecified hyperlipidemia type (4) UTI (urinary tract infection): Qualified Code: N30.01 - Acute cystitis with hematuria Cheri Gil MD R1 Dec 27, 2016 09:08 Kaylee Mcgowan MD Dec 29, 2016 16:42
[2016-12-27] MEDS ORDERED: ENALAPRILAT 1.25 MG/ML VIAL IV PUSH PRN (09:15)
--- NOTE | 2016-12-27 09:36 | RADRPT ---
EXAM DATE/TIME: 12/27/2016 09:16 [facility] COMPARISON: CHEST SINGLE AP, December 24, 2016, 9:50. INDICATIONS : Chest Pain. MEDICAL HISTORY : Hypertension. SURGICAL HISTORY : Hysterectomy. Cholecystectomy. ENCOUNTER: Initial ACUITY: 1 day PAIN SCORE: Non-responsive. LOCATION: Bilateral chest FINDINGS: Portable AP view of the chest demonstrates a normal-sized cardiac silhouette with calcification of th e aorta. Lungs are underinflated. There is a linear opacity at the left lung base. No pleural effusio n or pneumothorax is visualized. The bones and soft tissues demonstrate no acute finding. CONCLUSION: Underinflation with linear opacity left lung base. The appearance favors atelectasis over air space c onsolidation. Heath Humphrey MD on December 27, 2016 at 9:34 Board Certified Radiologist. This report was verified electronically.
[2016-12-27] MEDS ORDERED: POTASSIUM CHLORIDE 20 MEQ CONTROLLED RELEASE TAB PO PRN (09:45)
[2016-12-27] MEDS: cloNIDine HCL 0.1 MG TAB PO PRN (12:17)
[2016-12-27] MEDS ORDERED: ALUMINUM/MAGNESIUM/SIMETH 30 ML CUP PO ONE (12:30)
[2016-12-27] MEDS ORDERED: LIDOCAINE VISCOUS 2% SOLN 15 ML UDC SWISH-SWAL SCH (12:30)
[2016-12-27] MEDS ORDERED: ATROPINE/SCOPOLAM/HYOSCYAM/PB ELIXIR 10 ML CUP PO ONE (12:30)
--- NOTE | 2016-12-27 15:52 | MB ---
cc: ASHLEY PAYNE M.D., AHMAD M.D. DATE OF CONSULTATION: 12/27/2016. HISTORY OF PRESENT ILLNESS: Martha is a very pleasant 78-year-old lady. She is accompanied by her son at the bedside who reports that the patient was initially admitted for a chief complaint of weakness in the neck. This consult is submitted for evaluation of elevated troponin, intermittent chest pain, supraventricular tachycardia on EKG in the emergency department. To me, the patient denies chest pain, shortness of breath, fever, chills, cough, GI or bleeding, paroxysmal nocturnal dyspnea, orthopnea, syncope or dizziness. The patient was admitted on 12/24/16 through the emergency room. She also complained of generalized weakness. PAST MEDICAL HISTORY: Per past medical history is per the history of present illness and includes: 1. Hyperlipidemia. 2. Congestive heart failure. 3. Gastroesophageal reflux disease (GERD). 4. Hypertension. 5. Appendectomy. 6. Cholecystectomy. 7. Cataract laser surgery for the eye. 8. Hysterectomy. SOCIAL HISTORY: Denies tobacco or alcohol use. ALLERGIES: 1. PENICILLIN. 2. SULFA. 3. TETANUS. MEDICATIONS IN THE HOSPITAL: 1. Potassium PRN. 2. Amlodipine 5 milligrams daily. 3. Aspirin 81 milligrams daily. 4. MiraLax 17 grams daily. 5. Labetalol 100 milligrams q. 8 hours. 6. Losartan 50 twice a day. 7. Pantoprazole 40 twice a day. 8. Heparin 5000 subcutaneous q. 12 hours. 9. Half inch of nitro paste PRN. 10. Lasix 40 p.o. PRN PHYSICAL EXAMINATION: VITAL SIGNS: Blood pressure 174/69, pulse 85, respiratory rate 24, temperature 98.2. GENERAL: She is alert and oriented times three and in no acute distress. NECK: The neck is supple. No jugular venous distention. No bruits. CARDIOVASCULAR EXAM: S1 and S2. No murmurs, rubs or gallops. LUNGS: Clear to auscultation bilaterally. ABDOMEN: The abdomen is soft, nontender and nondistended with positive bowel sounds. EXTREMITIES: No lower extremity edema. IMAGING STUDIES: Chest x-ray shows under-inflation with linear opacities lung base, the appearance favors atelectasis over airspace consolidation. Cervical spine MRI shows degenerative changes without radiographically significant spinal stenosis, evidence for increased signal on the intraspinal ligaments to suggest ligamentous injury. Soft tissue MRI examination is degraded by motion artifact. No acute gross abnormality observed. Brain MRI shows two meningiomata are noted. No evidence of intracranial hemorrhage, stroke or edema. The 5 mm meningioma noted is along the tentorium not the falx. Head MRA shows clearly narrowing of the posterior vessels with at least 50% stenosis involving the distal right vertebral artery with some additional questionable filling defect in the more distal vertebral artery that could be some thrombus. The left vertebral artery is not identified. The majority of the posterior cerebral flow however comes from both patent posterior communicating arteries. Neck MRA shows minimal stenosis in the origin of the left internal carotid. Occlusion of the left vertebral artery. Abdominopelvic CT shows small pericardial effusion similar in size to June of 2016. New small area of effusion with dependent atelectasis in both lungs, rectal constipation, cholecystectomy. Carotid artery ultrasound shows 50% to 69% stenosis within the left internal carotid artery. Abdominal ultrasound shows no evidence of acute abdominal process. No masses are identified. Head CT is negative for an acute process. Cervical spine CT shows degenerative changes and negative for a fracture. Neck ultrasound shows no soft tissue abnormality to correspond with mass. The mass may correspond to underlying bone. CARDIOLOGY STUDIES: Echocardiogram read by myself shows ejection fraction of 55% to 60%, PA pressure of 43 mmHg. EKG on 12/24/2016 shows sinus rhythm, anteroseptal MT age indeterminate. Previous EKG to that showed sinus rhythm at 85 beats per minute. EKG on admission shows normal sinus rhythm, anteroseptal Q-waves. LABORATORY DATA: White count 6.3, hemoglobin 11.5, hematocrit 33.2, platelet count 259,000. Sodium 134, potassium 4.9, chloride 101, bicarbonate 21.9, BUN 9, creatinine 0.89. blood glucose 122. Liver function tests normal. Troponin is 0.11 preceded by 0.14, 0.13 and 0.14. LDL is 29. TSH is 0.660. INR is 1.0. DIAGNOSES: She has the following diagnoses: 1. NSTEMI. 2. Reported supraventricular tachycardia, although it is not apparent on her EKGs. 3. Anemia. 4. Hyponatremia. 5. Hyperglycemia. 6. Hypoalbuminemia. 7. Atelectasis. 8. Carotid stenosis. 9. 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 10. Dementia. 11. Possible meningioma. DISCUSSION: At this point in time, the patient is asymptomatic. She has a possible meningioma, possible vertebral artery thrombosis. Given her advanced age, at this point in time, would treat her medically. Continue her on amlodipine, aspirin, labetalol and losartan. Stain is held due to LDL of 29. Could consider increasing Norvasc to 10 if she remains hypertensive. Will continue to follow her while she is hospitalized. Dr. Olivera will be back on December 30. MD KERON Smith/RASHID /2:58 PM /3:25 PM
[2016-12-27] MEDS ORDERED: ALUMINUM/MAGNESIUM/SIMETH 30 ML CUP PO PRN (16:45)
[2016-12-27] MEDS: LATANOPROST 0.005% OPHT SOLN 2.5 ML BTL EACH EYE SCH (20:57)
[2016-12-28] VITALS (7 sets, daily range): BP systolic 153–179; BP diastolic 58–77; PULSE 64–75; RESP 18–21; TEMP 97.8–98.3; O2SAT 94–97
[2016-12-28] MEDS: LABETALOL HCL 100 MG TAB PO SCH ×3 (05:53→21:47)
[2016-12-28 08:56] LABS: HEMATOCRIT 31.3 % (35.0-46.0); MEAN CORPUSCULAR HEMOGLOBIN 31.4 PG (27.0-34.0); MEAN CORPUSCULAR HGB CONC 34.8 % (32.0-36.0); PLATELET COUNT 265 TH/MM3 (150-450); RED BLOOD COUNT 3.47 MIL/MM3 (4.00-5.30); RED CELL DISTRIBUTION WIDTH 12.8 % (11.6-17.2); REVIEW FLAG FINAL; WHITE BLOOD COUNT 4.6 TH/MM3 (4.0-11.0)
[2016-12-28] MEDS ORDERED: ONDANSETRON ODT 4 MG TAB PO PRN (09:00)
[2016-12-28] MEDS ORDERED: SOD PHOSPHATE/SOD BIPHOSPHATE (ADULT) ENEMA 133ML PR ONE (09:00)
[2016-12-28] MEDS ORDERED: SOD PHOSPHATE/SOD BIPHOSPHATE (ADULT) ENEMA 133ML PR PRN (09:00)
[2016-12-28] MEDS: ONDANSETRON HCL 4 MG/2 ML VIAL IV PRN ×2 (09:01→18:32)
[2016-12-28] MEDS: LOSARTAN 50 MG TAB PO SCH ×2 (09:03→21:47)
[2016-12-28] MEDS: ASPIRIN EC 325 MG TABEC PO SCH (09:03)
[2016-12-28] MEDS: HEPARIN SODIUM - SQ 10,000 UNITS/ML VIAL SQ SCH ×2 (09:04→21:47)
[2016-12-28] MEDS: PANTOPRAZOLE SOD 40 MG DELAYED RELEASE TAB PO SCH ×2 (09:04→21:47)
[2016-12-28] MEDS: POLYETHYLENE GLYCOL 17 GM PKG PO SCH (09:04)
--- NOTE | 2016-12-28 09:08 | HHI.FPPN ---
Subjective Remarks Ms Bazzi feels much better today. She states that the neck pain and chest pain have resolved. The abdominal pain is only present when she moves suddenly. She is okay with the idea of being discharged from the hospital today and son says that they have chosen [facility] for acute rehab. He wanted to know if a colonoscopy can be performed as an inpatient. Objective Vitals Vital Signs Date Time Temp Pulse Resp B/P Pulse Ox O2 Delivery O2 Flow Rate FiO2 12/28/16 08:32 98.3 71 21 164/71 96 12/28/16 04:00 98.3 75 18 167/70 96 12/28/16 00:00 98.1 67 18 154/67 96 12/27/16 20:00 98.0 66 18 134/84 96 12/27/16 20:00 66 12/27/16 16:42 83 12/27/16 16:00 97.8 63 16 156/66 96 12/27/16 12:00 98.2 85 24 174/69 99 I/O 12/27/16 12/27/16 12/27/16 12/28/16 12/28/16 12/28/16 07:00 15:00 23:00 07:00 15:00 23:00 Intake Total 120 ml 480 ml 2282 ml 100 ml Output Total 425 ml 150 ml Balance -305 ml 480 ml 2132 ml 100 ml Intake Oral 120 ml 480 ml 100 ml 100 ml IV Total 2182 ml Output Urine Total 425 ml 150 ml # Voids 20 1 3 # Bowel Movements 0 1 0 0 Result Diagram: 12/28/16 0712 12/27/16 0658 Objective Remarks GENERAL: This is an elderly appearing female lying in bed, no distress SKIN: No rashes, ecchymoses or lesions. Cool and dry HEAD: Atraumatic. Normocephalic. No temporal or scalp tenderness. EYES: Pupils equal round and reactive. Extraocular motions intact. No scleral icterus. No injection or drainage ENT: Neck collar removed, patient able to touch chin to chest chin to the shoulders on both sides. Uvula midline. Airway patent NECK: Trachea midline. No JVD or lymphadenopathy. Supple, nontender, no meningeal signs CARDIOVASCULAR: Regular rate and rhythm without murmurs, gallops, or rubs RESPIRATORY: Clear to auscultation. Breath sounds equal bilaterally. No wheezes , rales, or rhonchi GASTROINTESTINAL: Abdomen soft, nontender, nondistended. No hepato-splenomegaly , or palpable masses. No guarding MUSCULOSKELETAL: Extremities without clubbing, cyanosis, or edema. No joint tenderness, effusion, or edema noted. NEUROLOGICAL: Awake and alert. Cranial nerves II through XII intact. Motor and sensory grossly within normal limits. A/P Assessment and Plan Patient is an 86-year-old female with a past medical history of hypertension, renal dysfunction, and borderline diabetes that presents with a chief complaint of neck pain of 5 days duration after performing neck physical therapy exercises. Neurology consulted for MRI/MRA findings. Discharge Planning Pending clinical improvement Problem List: (1) NSTEMI (non-ST elevated myocardial infarction) Status: Acute Plan: -Chest pain resolved -Chest x-ray shows linear opacities more consistent with atelectasis than consolidation Incentive spirometer OOB minimum TID with meals -Possible that chest pain is 2/2 gastric reflux which is known -Pt responded well to GI cocktail - Maalox, Viscous Lidocaine, -Will continue Maalox prn -Consulted cardiology - recommends to hold stain and increase Norvasc to 10mg if needed to manage HTN History on admission: -EKG 2, CKMB 2 WNL. Troponin 3: 0.14, 0.13, 0.14 (2) Acute neck pain Status: Acute Plan: Concern for stroke versus TIA versus other -Neurology consulted Soft neck collar Obtain MRI of the soft tissues and neck Trial Sinemet; consider Botox if this does not resolve Check blood work: RPR nonreactive, CHAGO pending, thiamine, methylmalonic acid Images: CT C-spine negative for acute fracture, shows chronic degenerative changes MRA brain shows occlusion of the left vertebral artery and questionable thrombus in the distal right vertebral artery MRI brain is negative for intracranial hemorrhage, stroke or edema but shows 2 known meningiomas Echo shows 55-60% ejection fraction. No wall motion abnormalities. Normal left ventricular size. (3) Abdominal pain Status: Acute Plan: CT abdomen and pelvis: Showed Rectal constipation. Improved after bowel movement but still having mild abdominal discomfort, mildly TTP in RUQ on exam Consider gastroenterology consultation - last colonoscopy was > 10 years ago in [place] - was normal (4) Constipation Status: Acute Plan: Continue MiraLAX Fleets enema when necessary (5) Hypertension Status: Chronic Plan: Pressures have stabilized around 160 systolic -Continue home losartan 50 mg by mouth twice a day -Continue home labetalol 100 mg TID -Start amlodipine 5 mg by mouth daily - consider increasing to 10mg daily per cardiology -Clonidine 0.1 mg every 6 hours when necessary SBP >= 160, DBP >= 90 -Vasotec 1.25mg IV Q8h prn SBP >= 180, DBP >= 100 (6) Hyperlipidemia Status: Chronic Plan: -Continue pravastatin 40 mg by mouth at bedtime (7) FEN/DVT PPX/GI PPX Status: Acute Plan: Fluids: NS @ 50 mls/hr Electrolytes: Will monitor and replace as needed Nutrition: Mechanical softs, pt's teeth are sensitive and she cannot chew DVT Prophylaxis: Heparin subcutaneous every 12 hours GI Prophylaxis: Protonix 40 mg PO twice a day (8) UTI (urinary tract infection) Status: Resolved Plan: 12/24 Original urinalysis likely contaminant: Large leukocyte esterase, 36 white blood cells, 25 squamous 12/25 catheter urinalysis: Within normal limits, culture grew mixed gram positive contaminants on final report Discontinue ciprofloxacin Problem Qualifiers (1) Abdominal pain: Qualified Code: R10.31 - Right lower quadrant abdominal pain (2) Hypertension: Qualified Code: I10 - Essential hypertension (3) Hyperlipidemia: Qualified Code: E78.5 - Hyperlipidemia, unspecified hyperlipidemia type (4) UTI (urinary tract infection): Qualified Code: N30.01 - Acute cystitis with hematuria Cheri Gil MD R1 Dec 28, 2016 09:08
--- NOTE | 2016-12-28 09:09 | HHI.FPPN ---
Subjective Remarks Patient states she is "sick in her stomach this morning." She has her breakfast in front of her including eggs, gaytan, oatmeal. However, he feels nauseated and does not want to eat what is in front of her. No chest pain, fever, chills. Patient thinks that a intermediate facility's an appropriate place to go after hospitalization. Objective Vitals Vital Signs Date Time Temp Pulse Resp B/P Pulse Ox O2 Delivery O2 Flow Rate FiO2 12/28/16 08:32 98.3 71 21 164/71 96 12/28/16 04:00 98.3 75 18 167/70 96 12/28/16 00:00 98.1 67 18 154/67 96 12/27/16 20:00 98.0 66 18 134/84 96 12/27/16 20:00 66 12/27/16 16:42 83 12/27/16 16:00 97.8 63 16 156/66 96 12/27/16 12:00 98.2 85 24 174/69 99 I/O 12/27/16 12/27/16 12/27/16 12/28/16 12/28/16 12/28/16 07:00 15:00 23:00 07:00 15:00 23:00 Intake Total 120 ml 480 ml 2282 ml 100 ml Output Total 425 ml 150 ml Balance -305 ml 480 ml 2132 ml 100 ml Intake Oral 120 ml 480 ml 100 ml 100 ml IV Total 2182 ml Output Urine Total 425 ml 150 ml # Voids 20 1 3 # Bowel Movements 0 1 0 0 Result Diagram: 12/28/16 0712 12/27/16 0658 Objective Remarks GENERAL: This is an elderly appearing female sitting comfortably upright. SKIN: No rashes, ecchymoses or lesions. Cool and dry HEAD: Atraumatic. Normocephalic. No temporal or scalp tenderness. EYES: Pupils equal round and reactive. Extraocular motions intact. No scleral icterus. No injection or drainage ENT: patient able to touch chin to chest chin to the shoulders on both sides. Uvula midline. Airway patent NECK: Trachea midline. No JVD or lymphadenopathy. Supple, nontender, no meningeal signs CARDIOVASCULAR: Regular rate and rhythm without murmurs, gallops, or rubs RESPIRATORY: Clear to auscultation. Breath sounds equal bilaterally. No wheezes , rales, or rhonchi GASTROINTESTINAL: Abdomen soft, slightly tender in the RLQ, nondistended. No hepato-splenomegaly, or palpable masses. No guarding. Positive bowel sounds MUSCULOSKELETAL: Extremities without clubbing, cyanosis, or edema. No joint tenderness, effusion, or edema noted. NEUROLOGICAL: Awake and alert. Cranial nerves II through XII intact. Motor and sensory grossly within normal limits. Five out of 5 muscle strength in all muscle groups. Speech less slow today. A/P Assessment and Plan Patient is an 86-year-old female with a past medical history of hypertension, renal dysfunction, and borderline diabetes that presents with a chief complaint of neck pain of 5 days duration after performing neck physical therapy exercises. Neurology consulted for MRI/MRA findings. Neurology is okay to discharge to rehabilitation with follow-up in his office. Cardiology recommends medical management. Discharge Planning Today or tomorrow to intermediate facility. PT recommends PT at rehabilitation. Neuro recommends repeat MRI in 1 month and follow-up in his office. Patient and son considering [facility]. 3008 filled. Problem List: (1) NSTEMI (non-ST elevated myocardial infarction) Status: Acute Plan: Chest pain resolved -Consulted cardiology - appreciate recs Given her advanced age, treat medically Continue amlodipine, aspirin, labetalol, losartan Hold statin secondary to LDL of 29 History on admission: -EKG 2, CKMB 2 WNL. Troponin 3: 0.14, 0.13, 0.14, 0.11 (2) Acute neck pain Status: Acute Plan: Concern for stroke versus TIA versus other -Neurology consulted Per neurology, okay to discharge to rehabilitation and follow-up in his office. 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 No wall motion abnormalities. Normal left ventricular size. (3) Abdominal pain Status: Acute Plan: CT abdomen and pelvis: Showed Rectal constipation. Improved after bowel movement previously see constipation below (4) Constipation Status: Acute Plan: Continue MiraLAX Fleets enema when necessary (5) Hypertension Status: Chronic Plan: Pressures have continued to be elevated -Patient is on clonidine 0.1 mg 3 times a day at home; this will be continued. -Continue home losartan 50 mg by mouth twice a day -Continue home labetalol 100 mg TID -Continue amlodipine 5 mg by mouth daily -Hydralazine 10 mg PO prn SBP>160, DBP>90 -Vasotec 1.25mg IV Q8h prn SBP >= 180, DBP >= 100 (6) Hyperlipidemia Status: Chronic Plan: Stopping home statin secondary to LDL of 29 (7) FEN/DVT PPX/GI PPX Status: Acute Plan: Fluids: NS @ 50 mls/hr Electrolytes: Will monitor and replace as needed Nutrition: Per speech therapy. Regular diet; thin liquids DVT Prophylaxis: Heparin subcutaneous every 12 hours GI Prophylaxis: Protonix 40 mg PO twice a day (8) UTI (urinary tract infection) Status: Resolved Plan: 12/24 Original urinalysis likely contaminant: Large leukocyte esterase, 36 white blood cells, 25 squamous 12/25 catheter urinalysis: Within normal limits. Discontinue ciprofloxacin Problem Qualifiers (1) Abdominal pain: Qualified Code: R10.31 - Right lower quadrant abdominal pain (2) Hypertension: Qualified Code: I10 - Essential hypertension (3) Hyperlipidemia: Qualified Code: E78.5 - Hyperlipidemia, unspecified hyperlipidemia type (4) UTI (urinary tract infection): Qualified Code: N30.01 - Acute cystitis with hematuria Chintan Paez MD R2 Dec 28, 2016 09:09
[2016-12-28 09:28] LABS: BICARBONATE 25.3 MEQ/L (21.0-32.0); POTASSIUM 3.9 MEQ/L (3.5-5.1)
[2016-12-28] MEDS ORDERED: cloNIDine HCL 0.1 MG TAB PO SCH ×2 (09:30→13:00)
--- NOTE | 2016-12-28 12:52 | PD.CARD.PN ---
Subjective Subjective Remarks alert in nad Objective Vital Signs / I&O Vital Signs Date Time Temp Pulse Resp B/P Pulse Ox O2 Delivery O2 Flow Rate FiO2 12/28/16 12:08 97.8 73 21 169/77 94 12/28/16 08:32 98.3 71 21 164/71 96 12/28/16 04:00 98.3 75 18 167/70 96 12/28/16 00:00 98.1 67 18 154/67 96 12/27/16 20:00 98.0 66 18 134/84 96 12/27/16 20:00 66 12/27/16 16:42 83 12/27/16 16:00 97.8 63 16 156/66 96 I/O 12/27/16 12/27/16 12/27/16 12/28/16 12/28/16 12/28/16 07:00 15:00 23:00 07:00 15:00 23:00 Intake Total 120 ml 480 ml 2282 ml 100 ml Output Total 425 ml 150 ml Balance -305 ml 480 ml 2132 ml 100 ml Intake Oral 120 ml 480 ml 100 ml 100 ml IV Total 2182 ml Output Urine Total 425 ml 150 ml # Voids 20 1 3 # Bowel Movements 0 1 0 0 Laboratory GENERAL: SKIN: Warm and dry. HEAD: Normocephalic. EYES: No scleral icterus. No injection or drainage. NECK: Supple, trachea midline. No JVD or lymphadenopathy. CARDIOVASCULAR: Regular rate and rhythm without murmurs, gallops, or rubs. RESPIRATORY: Breath sounds equal bilaterally. No accessory muscle use. GASTROINTESTINAL: Abdomen soft, non-tender, nondistended. MUSCULOSKELETAL: No cyanosis, or edema. BACK: Nontender without obvious deformity. No CVA tenderness. Laboratory Tests Test 12/27/16 12/28/16 16:26 07:12 Troponin I 0.11 NG/ML White Blood Count 4.6 TH/MM3 Red Blood Count 3.47 MIL/MM3 Hemoglobin 10.9 GM/DL Hematocrit 31.3 % Mean Corpuscular Volume 90.0 FL Mean Corpuscular Hemoglobin 31.4 PG Mean Corpuscular Hemoglobin 34.8 % Concent Red Cell Distribution Width 12.8 % Platelet Count 265 TH/MM3 Mean Platelet Volume 8.3 FL Sodium Level 134 MEQ/L Potassium Level 3.9 MEQ/L Chloride Level 99 MEQ/L Carbon Dioxide Level 25.3 MEQ/L Anion Gap 10 MEQ/L Blood Urea Nitrogen 10 MG/DL Creatinine 0.97 MG/DL Estimat Glomerular Filtration 54 ML/MIN Rate Random Glucose 99 MG/DL Calcium Level 8.4 MG/DL Assessment and Plan Problem List: (1) NSTEMI (non-ST elevated myocardial infarction) (2) Meningioma Assessment and Plan 1.) NSTEMI - assymptomatic, continue aspirin, labatolol, norvasc, losartan Aiden Watson MD Dec 28, 2016 12:52
--- NOTE | 2016-12-28 13:47 | PD.CONS ---
HPI History of Present Illness This is a 86 year old female patient with a long history of RLQ pain and constipation. She is currently hospitalized for NSTEMI, s/p cardiology evaluation with medical management, acute neck pain after performing neck exercises, s/p neurology evaluation, abdominal pain and constipation. GI has been consulted for RLQ pain and chest discomfort responsive to GI cocktail, evaluation for EGD/Colonoscopy inpatient and outpatient follow up. The patient reports that she has had a mild constant dull ache in her RLQ for the past 2 years. She cannot identify any aggravating or alleviating factors, although she and her son report an ongoing issue with constipation. At home, she takes colace and Aloe juice with occasional dulcolax, but has continued to have issues with constipation and report that this is getting worse. She has associated decreased appetite and has lost about 18 lbs over the past few months. She denies any melena or hematochezia. She does report that her abdominal pain has improved during this hospitalization, but has not completely resolved. Her last colonoscopy was about 18 years ago. The patient and son report that the plan is for her to go to [facility] tomorrow and they would like her to be evaluated with endoscopies prior to her discharge and are hoping that we can get her on a better bowel regimen to go home on. She denies any known family hx of esophageal, gastric, or colorectal cancer. (Sharon Munguia) PFSH Past Medical History HTN GERD HLD Borderline DM Renal dysfunction Bilateral frozen shoulder Chronic RLQ abdominal pain Chronic constipation Decreased appetite, weight loss Past Surgical History Partial hysterectomy Cholecystectomy Colonoscopy (Sharon Munguia) Coded Allergies: Penicillin (Verified Allergy, Severe, Hives, 07/01/16) Sulfa (Verified Allergy, Severe, Anaphylaxis, 07/01/16) Tetanus Toxoid (Verified Allergy, Severe, Nausea/Vomiting, 07/01/16) Medications Allergies Coded Allergies Type Severity Reaction Last Updated Verified Penicillin Allergy Severe Hives 07/01/16 Yes Sulfa Allergy Severe Anaphylaxis 07/01/16 Yes Tetanus Toxoid Allergy Severe Nausea/Vomiting 07/01/16 Yes Active Scripts Medications Dose Route/Sig Days Date Category Dose Instructions Esomeprazole DR 40 Mg Capdr 40 Mg PO BID 12/24/16 Reported Latanoprost Opth Drops (Latanoprost) 0.005% Drops 1 Drop EACH EYE HS 12/24/16 Reported Refrigerate until opened. Losartan (Losartan Potassium) 50 Mg Tab 50 Mg PO BID 12/24/16 Reported Meclizine (Meclizine HCl) 12.5 Mg Tab 6.25 Mg PO Q8HR PRN 12/24/16 Reported Pravastatin 40 Mg Tab 40 Mg PO DAILY 12/24/16 Reported Clonidine (Clonidine HCl) 0.1 Mg Tab 0.1 Mg PO TID 12/24/16 Reported Lasix (Furosemide) 40 Mg Tab 40 Mg PO DAILY PRN 12/24/16 Reported Labetalol (Labetalol HCl) 100 Mg Tab 100 Mg PO TID 12/24/16 Reported K-Tab (Potassium Chloride) 20 Meq Tab 20 Meq PO DAILY 12/24/16 Reported Thermotabs (Oral Electrolytes) 1 Tab Tab 1 Tab PO DAILY 12/24/16 Reported Family History DM - sisters, brother CAD - brother Social History No use of tobacco, etoh, or illicit drug use. (Sharon Munguia) Review of Systems Constitutional: COMPLAINS OF: Fatigue, Weight loss, Change in appetite, DENIES : Fever Respiratory: DENIES: Cough, Shortness of breath Cardiovascular: COMPLAINS OF: Chest pain, DENIES: Palpitations Gastrointestinal: COMPLAINS OF: Abdominal pain, Constipation, Odynophagia, DENIES: Black stools, Bloody stools, Nausea, Vomiting, Hematemesis Musculoskeletal: COMPLAINS OF: Neck pain Integumentary: DENIES: Jaundice Hematologic/lymphatic: COMPLAINS OF: Bruising Neurologic: DENIES: Headache Psychiatric: DENIES: Confusion (Sharon Munguia) GI Exam Vitals I&O Vital Signs Date Time Temp Pulse Resp B/P Pulse Ox O2 Delivery O2 Flow Rate FiO2 12/28/16 12:08 97.8 73 21 169/77 94 12/28/16 08:32 98.3 71 21 164/71 96 12/28/16 04:00 98.3 75 18 167/70 96 12/28/16 00:00 98.1 67 18 154/67 96 12/27/16 20:00 98.0 66 18 134/84 96 12/27/16 20:00 66 12/27/16 16:42 83 12/27/16 16:00 97.8 63 16 156/66 96 I/O 12/27/16 12/27/16 12/27/16 12/28/16 12/28/16 12/28/16 07:00 15:00 23:00 07:00 15:00 23:00 Intake Total 120 ml 480 ml 2282 ml 100 ml Output Total 425 ml 150 ml Balance -305 ml 480 ml 2132 ml 100 ml Intake Oral 120 ml 480 ml 100 ml 100 ml IV Total 2182 ml Output Urine Total 425 ml 150 ml # Voids 20 1 3 # Bowel Movements 0 1 0 0 Imaging Last Impressions Chest X-Ray 12/27/16 0000 Signed Impressions: Service Date/Time: Tuesday, December 27, 2016 09:16 - CONCLUSION: Underinflation with linear opacity left lung base. The appearance favors atelectasis over air space consolidation. Heath Humphrey MD Soft Tissue MRI 12/26/16 Signed Impressions: Service Date/Time: Monday, December 26, 2016 09:01 - CONCLUSION: 1. Examination is degraded by motion artifact. 2. No acute gross abnormality observed. Stephen Elias Jr., MD Cervical Spine MRI 12/26/16 Signed Impressions: Service Date/Time: Monday, December 26, 2016 09:01 - CONCLUSION: 1. Degenerative changes as described above without radiographically significant spinal stenosis. 2. There is no evidence for increase signal in the intraspinal ligaments to suggest ligamentous injury. Triston Escobar MD FACR Neck Magnetic Resonance Angiography 12/25/16706 Signed Impressions: Service Date/Time: December 08:21 - CONCLUSION: 1. Minimal stenosis in the origin of the left internal carotid. 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 Bret Escobar MD Head Magnetic Resonance Angiography 12/25/16706 Signed Impressions: Service Date/Time: December 08:21 - CONCLUSION: Clearly narrowing of the posterior vessels with at least 50%% stenosis involving the distal right vertebral artery with some additional questionable filling defect in the more distal vertebral artery, could be some thrombus. Left vertebral artery is not identified. The majority of the posterior cerebral flow however comes from both patent posterior communicating arteries. Please see above. Eben Mejia MD Brain MRI 12/25/16706 Signed Impressions: Service Date/Time: December 08:21 - CONCLUSION: 2 meningioma are noted. No evidence of intracranial hemorrhage, stroke, or edema. Eben Mejia MD ADDENDUM: The 5 mm meningioma noted is along the tentorium not the falx. Eben Mejia MD Carotid Artery Ultrasound 12/25/16 0000 Signed Impressions: Service Date/Time: December 11:04 - CONCLUSION: 1. 50-69%% stenosis within the left internal carotid artery. 2. No significant stenosis of the right internal carotid artery. Mejia Erickson MD Abdomen/Pelvis CT 12/25/16 0000 Signed Impressions: Service Date/Time: December 02:21 - CONCLUSION: 1. Small pericardial effusion similar in size to June 2016. 2. New small right effusion with dependent atelectasis in both lungs. 3. Rectal constipation. Cholecystectomy. Chava Katz MD Abdomen Ultrasound 12/24/16 1528 Signed Impressions: Service Date/Time: Saturday, December 24, 2016 15:24 - CONCLUSION: 1. No evidence of acute abdominal process. No masses are identified. Domingo Francisco MD Head CT 12/24/16 0946 Signed Impressions: Service Date/Time: Saturday, December 24, 2016 10:36 - CONCLUSION: Negative for an acute process. Triston Escobar MD FACR Neck Ultrasound 12/24/16 0000 Signed Impressions: Service Date/Time: Saturday, December 24, 2016 15:47 - CONCLUSION: No soft tissue abnormality to correspond with mass. The mass may correspond to underlying bone Mejia Erickson MD Cervical Spine CT 12/24/16 0000 Signed Impressions: Service Date/Time: Saturday, December 24, 2016 10:36 - CONCLUSION: Degenerative changes, negative for a fracture. Triston Escobar MD FACR Laboratory Test 12/27/16 12/28/16 16:26 07:12 Troponin I 0.11 NG/ML White Blood Count 4.6 TH/MM3 Red Blood Count 3.47 MIL/MM3 Hemoglobin 10.9 GM/DL Hematocrit 31.3 % Mean Corpuscular Volume 90.0 FL Mean Corpuscular Hemoglobin 31.4 PG Mean Corpuscular Hemoglobin 34.8 % Concent Red Cell Distribution Width 12.8 % Platelet Count 265 TH/MM3 Mean Platelet Volume 8.3 FL Sodium Level 134 MEQ/L Potassium Level 3.9 MEQ/L Chloride Level 99 MEQ/L Carbon Dioxide Level 25.3 MEQ/L Anion Gap 10 MEQ/L Blood Urea Nitrogen 10 MG/DL Creatinine 0.97 MG/DL Estimat Glomerular Filtration 54 ML/MIN Rate Random Glucose 99 MG/DL Calcium Level 8.4 MG/DL Date/Time Procedure Status Source Growth 12/24/16 09:57 Urine Culture - Final Complete Urine Catheterized Urine Physical Examination HEENT: Normocephalic; atraumatic; no jaundice. CHEST: CTA CARDIAC: RRR ABDOMEN: Soft, mildly distended, mild RLQ tenderness; no hepatosplenomegaly; bowel sounds are present in all four quadrants. EXTREMITIES: No clubbing, cyanosis, or edema. SKIN: Generalized pallor SECURITY AGENT: No focal deficits; alert and oriented times three. (Sharon Munguia) Assessment and Plan Plan ASSESSMENT: - RLQ pain. Abdomen/Pelvis CT (12/25/16)----> 1. Small pericardial effusion similar in size to June 2016. 2. New small right effusion with dependent atelectasis in both lungs. 3. Rectal constipation. Cholecystectomy. Abdomen Ultrasound (12/24/16)----> 1. No evidence of acute abdominal process. No masses are identified. Pt has associated constipation, weight loss, anemia, decreased appetite. GI consulted for further evaluation with inpatient EGD/Colonoscopy. Patient and son would prefer this be done as inpatient. - Chronic constipation. + BM. Miralax. - Decreased appetite, abnormal weight loss. 18 lb weight loss over the past 2 months. - Anemia, normocytic. 10.9/31.3. - NSTEMI, s/p cardiology evaluation, medical management. - Neck pain, improved. S/P neurology evaluation. - HTN, Hyperlipidemia per primary PLAN: - Plan egd/colonoscopy in am - Obtain consents - Clear liquids - NPO after MN - Golytely prep - Hold heparin after MN - Cont. Miralax 17gram po daily - Add PPI - Supportive care - Further recommendations to follow based on results of above - PT seen and examined by Dr. Caldwell and myself and this note is written on his behalf (Sharon Munguia) Physician Comments Patient Seen and examined Agree with above Continue with current supportive care Monitor labs EGD colonoscopy tomorrow (Hussein Caldwell MD) Sharon Munguia Dec 28, 2016 13:47 Hussein Caldwell MD Dec 28, 2016 18:30
--- NOTE | 2016-12-28 14:21 | EKG ---
Date Performed: 12/27/2016 Time Performed: 09:17:12 PTAGE: 86 years EKG: Sinus rhythm with 1st degree A-V block. Possible septal infarct - age undetermined Compared to prior tracing no s ignificant change Abnormal ECG PREVIOUS TRACING : 12/24/2016 22.21 DOCTOR: Aiden Watson Interpretating Date/Time 12/28/2016 14:20:08
[2016-12-28] MEDS ORDERED: PEG (High)/E-LYTE SOLN 4000 ML BTL PO ONE (16:00)
[2016-12-28] MEDS: LATANOPROST 0.005% OPHT SOLN 2.5 ML BTL EACH EYE SCH (21:48)
[2016-12-29] VITALS (9 sets, daily range): BP systolic 161–179; BP diastolic 67–84; PULSE 71–84; RESP 16–20; TEMP 97.8–98.6; O2SAT 95–98
[2016-12-29] MEDS: hydrALAZINE HCL 10 MG TAB PO PRN ×2 (00:05→12:26)
[2016-12-29] MEDS: LABETALOL HCL 100 MG TAB PO SCH ×2 (06:38→12:26)
[2016-12-29] MEDS: SODIUM CHLOR 0.9% 1000 ML INJ 1,000 ML IV SCH (06:42)
[2016-12-29 08:11] LABS: BICARBONATE 25.4 MEQ/L (21.0-32.0); POTASSIUM 3.7 MEQ/L (3.5-5.1)
[2016-12-29 08:13] LABS: HEMATOCRIT 34.8 % (35.0-46.0); MEAN CELL VOLUME 91.8 FL (80.0-100.0); MEAN CORPUSCULAR HEMOGLOBIN 30.7 PG (27.0-34.0); MEAN CORPUSCULAR HGB CONC 33.5 % (32.0-36.0); PLATELET COUNT 307 TH/MM3 (150-450); RED BLOOD COUNT 3.79 MIL/MM3 (4.00-5.30); RED CELL DISTRIBUTION WIDTH 12.6 % (11.6-17.2); REVIEW FLAG FINAL; WHITE BLOOD COUNT 5.4 TH/MM3 (4.0-11.0)
[2016-12-29] MEDS: LOSARTAN 50 MG TAB PO SCH (08:50)
[2016-12-29] MEDS: POLYETHYLENE GLYCOL 17 GM PKG PO SCH (08:50)
[2016-12-29] MEDS: ASPIRIN EC 325 MG TABEC PO SCH (09:00)
[2016-12-29] MEDS ORDERED: amLODIPine BESYLATE 5 MG TAB PO SCH (09:00)
[2016-12-29] MEDS ORDERED: PANTOPRAZOLE SOD 40 MG DELAYED RELEASE TAB PO SCH (09:00)
[2016-12-29] MEDS ORDERED: ASPIRIN EC 81 MG TABEC PO SCH (09:01)
--- NOTE | 2016-12-29 09:24 | HHI.PR ---
Subjective Remarks head drop all better Objective Vital Signs Date Time Temp Pulse Resp B/P Pulse Ox O2 Delivery O2 Flow Rate FiO2 12/29/16 04:00 98.0 80 16 179/84 98 12/29/16 00:00 98.6 71 18 164/70 97 12/28/16 21:00 Room Air 12/28/16 20:24 65 12/28/16 20:00 98.1 74 18 179/76 97 12/28/16 16:20 98.2 64 19 153/58 95 12/28/16 12:08 97.8 73 21 169/77 94 I/O 12/28/16 12/28/16 12/28/16 12/29/16 12/29/16 12/29/16 07:00 15:00 23:00 07:00 15:00 23:00 Intake Total 100 ml 480 ml 2133 ml 437 ml Output Total 150 ml 500 ml Balance 100 ml 330 ml 1633 ml 437 ml Intake Oral 100 ml 480 ml 1440 ml IV Total 693 ml 437 ml Output Urine Total 150 ml 500 ml # Voids 3 3 3 # Bowel Movements 0 1 3 4 Result Diagram: 12/29/16 0659 12/29/16 0659 Objective Remarks speech stronger can hold head up nl now Assessment and Plan Assessment and Plan imp all better ok dc to rehab follow up office [facility] cards on case small 2 ? meningioma ashwin repeat mri one month will sign off Domingo Chavez MD Dec 29, 2016 09:24
[2016-12-29] MEDS ORDERED: PROPOFOL 200 MG/20 ML AMP IV ONE (10:58)
--- NOTE | 2016-12-29 11:36 | HHI.GIFU ---
Subjective Remarks patient is laying in bed comfortable, no pain, tolerated prep Objective Vitals I&O Vital Signs Date Time Temp Pulse Resp B/P Pulse Ox O2 Delivery O2 Flow Rate FiO2 12/29/16 10:34 98.4 80 20 179/72 95 12/29/16 09:00 77 12/29/16 08:06 98.4 80 20 179/72 95 12/29/16 08:00 Room Air 12/29/16 04:00 98.0 80 16 179/84 98 12/29/16 00:00 98.6 71 18 164/70 97 12/28/16 21:00 Room Air 12/28/16 20:24 65 12/28/16 20:00 98.1 74 18 179/76 97 12/28/16 16:20 98.2 64 19 153/58 95 12/28/16 12:08 97.8 73 21 169/77 94 I/O 12/28/16 12/28/16 12/28/16 12/29/16 12/29/16 12/29/16 07:00 15:00 23:00 07:00 15:00 23:00 Intake Total 100 ml 480 ml 2133 ml 437 ml Output Total 150 ml 500 ml Balance 100 ml 330 ml 1633 ml 437 ml Intake Oral 100 ml 480 ml 1440 ml IV Total 693 ml 437 ml Output Urine Total 150 ml 500 ml # Voids 3 3 3 # Bowel Movements 0 1 3 4 Laboratory Laboratory Tests Test 12/29/16 06:59 White Blood Count 5.4 Red Blood Count 3.79 Hemoglobin 11.7 Hematocrit 34.8 Mean Corpuscular Volume 91.8 Mean Corpuscular Hemoglobin 30.7 Mean Corpuscular Hemoglobin 33.5 Concent Red Cell Distribution Width 12.6 Platelet Count 307 Mean Platelet Volume 7.9 Sodium Level 136 Potassium Level 3.7 Chloride Level 100 Carbon Dioxide Level 25.4 Anion Gap 11 Blood Urea Nitrogen 7 Creatinine 0.87 Estimat Glomerular Filtration 61 Rate Random Glucose 108 Calcium Level 8.6 Physical Exam HEENT: Pupils round and reactive to light; normocephalic; atraumatic; no jaundice. Throat is clear. NECK: Neck is supple, no JVD, no lymphadenopathy. CHEST: Chest is clear to auscultation and percussion. CARDIAC: Regular rate and rhythm with no murmur gallop or rubs. ABDOMEN: Soft, nondistended, nontender; no hepatosplenomegaly; bowel sounds are present in all four quadrants. EXTREMITIES: No clubbing, cyanosis, or edema. SKIN: Normal; no rash; no jaundice. GLASS TINTER: No focal deficits; alert and oriented Assessment and Plan Plan ASSESSMENT: - RLQ pain. Abdomen/Pelvis CT (12/25/16)----> 1. Small pericardial effusion similar in size to June 2016. 2. New small right effusion with dependent atelectasis in both lungs. 3. Rectal constipation. Cholecystectomy. Abdomen Ultrasound (12/24/16)----> 1. No evidence of acute abdominal process. No masses are identified. Pt has associated constipation, weight loss, anemia, decreased appetite. GI consulted for further evaluation with inpatient EGD/Colonoscopy. Patient and son would prefer this be done as inpatient. - Chronic constipation. + BM. Miralax. - Decreased appetite, abnormal weight loss. 18 lb weight loss over the past 2 months. - Anemia, normocytic. 10.9/31.3. - NSTEMI, s/p cardiology evaluation, medical management. - Neck pain, improved. S/P neurology evaluation. - HTN, Hyperlipidemia per primary 3-04-11 patient had diarrhea before coming to hospital, no pain today, we did colonoscopy and not EGD since no upper GI symptom, I did colonoscopy with Bx, she had nl colon Bx was done PLAN: - diet as tolerated - may start heparin in 12 hours - Cont. Miralax 17gram po daily if she has constipation - Add PPI - ok to discharge Danya Terrazas MD Dec 29, 2016 11:36
[2016-12-29] MEDS: PANTOPRAZOLE SOD 40 MG DELAYED RELEASE TAB PO SCH (12:25)
--- NOTE | 2016-12-29 13:10 | HHI.FPPN ---
Subjective Remarks Ms Bazzi was seen as she was just returning from colonoscopy. She said she was not feeling too well, but she was just coming off sedation. She denied chest pain, shortness of breath, neck pain. She continued to endorse right lower quadrant abdominal pain. (Cheri Gil MD R1) Objective Vitals Vital Signs Date Time Temp Pulse Resp B/P Pulse Ox O2 Delivery O2 Flow Rate FiO2 12/29/16 12:08 98.6 81 20 175/67 97 12/29/16 10:34 98.4 80 20 179/72 95 12/29/16 09:00 77 12/29/16 08:06 98.4 80 20 179/72 95 12/29/16 08:00 Room Air 12/29/16 04:00 98.0 80 16 179/84 98 12/29/16 00:00 98.6 71 18 164/70 97 12/28/16 21:00 Room Air 12/28/16 20:24 65 12/28/16 20:00 98.1 74 18 179/76 97 12/28/16 16:20 98.2 64 19 153/58 95 I/O 12/28/16 12/28/16 12/28/16 12/29/16 12/29/16 12/29/16 07:00 15:00 23:00 07:00 15:00 23:00 Intake Total 100 ml 480 ml 2133 ml 437 ml Output Total 150 ml 500 ml Balance 100 ml 330 ml 1633 ml 437 ml Intake Oral 100 ml 480 ml 1440 ml IV Total 693 ml 437 ml Output Urine Total 150 ml 500 ml # Voids 3 3 3 # Bowel Movements 0 1 3 4 (Cheri Gil MD R1) Result Diagram: 12/29/1659 12/29/16 0659 Objective Remarks GENERAL: This is an elderly appearing female sitting up in bed SKIN: No rashes, ecchymoses or lesions. Cool and dry HEAD: Atraumatic. Normocephalic. No temporal or scalp tenderness. EYES: Pupils equal round and reactive. Extraocular motions intact. No scleral icterus. No injection or drainage ENT: Patient able to move her neck without discomfort, uvula midline. Airway patent NECK: Trachea midline. No JVD or lymphadenopathy. Supple, nontender, no meningeal signs CARDIOVASCULAR: Regular rate and rhythm without murmurs, gallops, or rubs RESPIRATORY: Clear to auscultation. Breath sounds equal bilaterally. No wheezes , rales, or rhonchi GASTROINTESTINAL: Abdomen soft, moderately tender in the RLQ, nondistended. No hepato-splenomegaly, or palpable masses. No guarding. Positive bowel sounds MUSCULOSKELETAL: Extremities without clubbing, cyanosis, or edema. No joint tenderness, effusion, or edema noted. NEUROLOGICAL: Awake and alert. Cranial nerves II through XII intact. Motor and sensory grossly within normal limits. Five out of 5 muscle strength in all muscle groups., Communicating appropriately (Cheri Gli MD R1) A/P Assessment and Plan Patient is an 86-year-old female with a past medical history of hypertension, renal dysfunction, and borderline diabetes that presents with a chief complaint of neck pain of 5 days duration after performing neck physical therapy exercises. Neurology consulted for MRI/MRA findings. Neurology is okay to discharge to rehabilitation with follow-up in his office. Cardiology recommends medical management and follow-up with Dr. 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 Gastroenterology was consulted due to patient's long history of right lower quadrant pain. Colonoscopy was performed on 12/29, normal colon mucosa , biopsies sent for pathology review. Discharge Planning Discharge today to intermediate facility. PT recommends PT at rehabilitation. Neuro recommends repeat MRI in 1 month and follow-up in his office. Patient and son decided on [facility]. [facility] filled. (Cheri Gil MD R1) Attending Attestation Patient seen and examined with the resident team. Case reviewed and discussed Agree with plan of care as discussed with me and documented in the resident note. (Kaylee Mcgowan MD) Problem List: (1) NSTEMI (non-ST elevated myocardial infarction) Status: Acute Plan: Chest pain resolved -Consulted cardiology -will follow up with Dr. Olivera in his office Given her advanced age, treat medically Continue amlodipine, aspirin, labetalol, losartan Hold statin secondary to LDL of 29 History on admission: -EKG 2, CKMB 2 WNL. Troponin 3: 0.14, 0.13, 0.14, 0.11 (2) Acute neck pain Status: Acute Plan: Concern for stroke versus TIA versus other -Neurology consulted Per neurology, okay to discharge to rehabilitation and follow-up in his office. Recommends repeat MRI in 1 month, follow-up with Dr. 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 No wall motion abnormalities. Normal left ventricular size. (3) Abdominal pain Status: Acute Plan: CT abdomen and pelvis: Showed Rectal constipation. Patient complains of persistent right lower quadrant abdominal pain Colonoscopy performed on 12/29 - normal exam, biopsy samples sent for pathology review Improved after bowel movement previously see constipation below (4) Constipation Status: Acute Plan: Continue MiraLAX Fleets enema when necessary (5) Hypertension Status: Chronic Plan: Pressures have continued to be elevated -Continue home losartan 50 mg by mouth twice a day -Continue home labetalol 100 mg TID -Continue amlodipine 5 mg by mouth daily -Clonidine to be continued outpatient as PRN medication for SBP >= 180, DBP >= 100 -Hydralazine 10 mg PO prn SBP>160, DBP>90 -Vasotec 1.25mg IV Q8h prn SBP >= 180, DBP >= 100 (6) Hyperlipidemia Status: Chronic Plan: Stopping home statin secondary to LDL of 29 (7) FEN/DVT PPX/GI PPX Status: Acute Plan: Fluids: Oral fluids only Electrolytes: Will monitor and replace as needed Nutrition: Per speech therapy, regular diet; thin liquids DVT Prophylaxis: Heparin subcutaneous every 12 hours - held for colonoscopy GI Prophylaxis: Protonix 40 mg PO twice a day, Maalox when necessary for reflux symptoms (8) UTI (urinary tract infection) Status: Resolved Plan: 12/24 Original urinalysis likely contaminant: Large leukocyte esterase, 36 white blood cells, 25 squamous 12/25 catheter urinalysis: Within normal limits. Discontinue ciprofloxacin (Cheri Gil MD R1) Problem Qualifiers (1) Abdominal pain: Qualified Code: R10.31 - Right lower quadrant abdominal pain (2) Hypertension: Qualified Code: I10 - Essential hypertension (3) Hyperlipidemia: Qualified Code: E78.5 - Hyperlipidemia, unspecified hyperlipidemia type (4) UTI (urinary tract infection): Qualified Code: N30.01 - Acute cystitis with hematuria Cheri Gil MD R1 Dec 29, 2016 13:10 Kaylee Mcgowan MD Dec 29, 2016 16:39
--- NOTE | 2016-12-29 14:17 | PD.CARD.PN ---
Subjective Subjective Remarks alert in nad Objective Vital Signs / I&O Vital Signs Date Time Temp Pulse Resp B/P Pulse Ox O2 Delivery O2 Flow Rate FiO2 12/29/16 14:12 97 Nasal Cannula 21 12/29/16 12:08 98.6 81 20 175/67 97 12/29/16 11:35 73 16 149/62 95 12/29/16 11:25 73 18 139/62 95 12/29/16 11:15 97.5 76 18 134/57 96 12/29/16 10:34 98.4 80 20 179/72 95 12/29/16 09:00 77 12/29/16 08:06 98.4 80 20 179/72 95 12/29/16 08:00 Room Air 12/29/16 04:00 98.0 80 16 179/84 98 12/29/16 00:00 98.6 71 18 164/70 97 12/28/16 21:00 Room Air 12/28/16 20:24 65 12/28/16 20:00 98.1 74 18 179/76 97 12/28/16 16:20 98.2 64 19 153/58 95 I/O 12/28/16 12/28/16 12/28/16 12/29/16 12/29/16 12/29/16 07:00 15:00 23:00 07:00 15:00 23:00 Intake Total 100 ml 480 ml 2133 ml 437 ml 50 ml Output Total 150 ml 500 ml Balance 100 ml 330 ml 1633 ml 437 ml 50 ml Intake Oral 100 ml 480 ml 1440 ml IV Total 693 ml 437 ml Other 50 ml Output Urine Total 150 ml 500 ml # Voids 3 3 3 # Bowel Movements 0 1 3 4 Physical Exam GENERAL: SKIN: Warm and dry. HEAD: Normocephalic. EYES: No scleral icterus. No injection or drainage. NECK: Supple, trachea midline. No JVD or lymphadenopathy. CARDIOVASCULAR: Regular rate and rhythm without murmurs, gallops, or rubs. RESPIRATORY: Breath sounds equal bilaterally. No accessory muscle use. GASTROINTESTINAL: Abdomen soft, non-tender, nondistended. MUSCULOSKELETAL: No cyanosis, or edema. BACK: Nontender without obvious deformity. No CVA tenderness. Laboratory Laboratory Tests Test 12/29/16 06:59 White Blood Count 5.4 TH/MM3 Red Blood Count 3.79 MIL/MM3 Hemoglobin 11.7 GM/DL Hematocrit 34.8 % Mean Corpuscular Volume 91.8 FL Mean Corpuscular Hemoglobin 30.7 PG Mean Corpuscular Hemoglobin 33.5 % Concent Red Cell Distribution Width 12.6 % Platelet Count 307 TH/MM3 Mean Platelet Volume 7.9 FL Sodium Level 136 MEQ/L Potassium Level 3.7 MEQ/L Chloride Level 100 MEQ/L Carbon Dioxide Level 25.4 MEQ/L Anion Gap 11 MEQ/L Blood Urea Nitrogen 7 MG/DL Creatinine 0.87 MG/DL Estimat Glomerular Filtration 61 ML/MIN Rate Random Glucose 108 MG/DL Calcium Level 8.6 MG/DL Assessment and Plan Problem List: (1) NSTEMI (non-ST elevated myocardial infarction) (2) Meningioma Assessment and Plan 1.) NSTEMI - assymptomatic, continue aspirin, labatolol, norvasc, losartan; Dr Olivera to f/u tomorrow or advised patient to call Dr Olivera [facility] for f/u after dc. Aiden Watson MD Dec 29, 2016 14:17
[2016-12-29] MEDS ORDERED: CLON0.1T PO (15:05)
[2016-12-29] MEDS ORDERED: AMLO10 PO (15:05)
[2016-12-29] MEDS ORDERED: ASPI81TA11 PO (15:05)
--- NOTE | 2016-12-29 15:06 | HHI.DCPOC ---
Discharge Care Plan Diagnosis: (1) Urinary tract infection (2) NSTEMI (non-ST elevated myocardial infarction) (3) Acute neck pain (4) Constipation (5) Hypertension (6) Meningioma (7) Renal insufficiency Goals to Promote Your Health * To prevent worsening of your condition and complications * To maintain your health at the optimal level Directions to Meet Your Goals Take your medications as prescribed Follow your dietary instruction Follow activity as directed Keep your appointments as scheduled Take your immunizations and boosters as scheduled If your symptoms worsen call your PCP, if no PCP go to Urgent Care Center or Emergency Room Smoking is Dangerous to Your Health. Avoid second hand smoke Call the 24-hour hour crisis hotline for domestic abuse at Cheri Gil MD R1 Dec 29, 2016 15:06
[2016-12-29] MEDS ORDERED: MAG-LIQ PO (15:10)
--- NOTE | 2017-01-03 16:16 | HHI.DS ---
Discharge Summary Admission Date Dec 24, 2016 at 11:30 Discharge Date: Dec 29, 2016 Admitting Diagnosis NSTEMI, UTI, Generalized weakness (1) NSTEMI (non-ST elevated myocardial infarction) Diagnosis: Principal (2) Acute neck pain Diagnosis: Principal (3) Abdominal pain Diagnosis: Secondary (4) Constipation Diagnosis: Secondary (5) Hypertension Diagnosis: Secondary (6) Hyperlipidemia Diagnosis: Secondary (7) UTI (urinary tract infection) Diagnosis: Secondary Brief History Patient is an 86-year-old female that presents to the [place] ED with a chief complaint of neck pain that began on Wednesday 12/20 after a session of physical therapy at home. Patient's son Romeo, whom the patient lives with, provides most of the history. Patient normally gets physical therapy at home but Thursday was the first time that the therapist decided to do neck exercises. The patient states that during the exercise she felt a pop in her neck. The next morning, the patient could not move her neck which has remained in a flexed position due to pain. The neck pain is located in her C-spine around C3-4 level. She rates the pain as 10/10. The patient's son contacted the physical therapist and the patient's PCP, who both agreed that she should come into the hospital today. The patient denies fever, chills, dysuria, nausea, vomiting, but complains of 10 /10 right lower quadrant abdominal pain for the past 4-5 months that she says " feels like something is about to burst in there. "She also had 10 episodes of loose, nonbloody diarrhea on Thursday, as well as multiple episodes of diarrhea a week before Thursday. She has not had any chest pain. PE at Discharge GENERAL: This is an elderly appearing female sitting up in bed SKIN: No rashes, ecchymoses or lesions. Cool and dry HEAD: Atraumatic. Normocephalic. No temporal or scalp tenderness. EYES: Pupils equal round and reactive. Extraocular motions intact. No scleral icterus. No injection or drainage ENT: Patient able to move her neck without discomfort, uvula midline. Airway patent NECK: Trachea midline. No JVD or lymphadenopathy. Supple, nontender, no meningeal signs CARDIOVASCULAR: Regular rate and rhythm without murmurs, gallops, or rubs RESPIRATORY: Clear to auscultation. Breath sounds equal bilaterally. No wheezes , rales, or rhonchi GASTROINTESTINAL: Abdomen soft, moderately tender in the RLQ, nondistended. No hepato-splenomegaly, or palpable masses. No guarding. Positive bowel sounds MUSCULOSKELETAL: Extremities without clubbing, cyanosis, or edema. No joint tenderness, effusion, or edema noted. NEUROLOGICAL: Awake and alert. Cranial nerves II through XII intact. Motor and sensory grossly within normal limits. Five out of 5 muscle strength in all muscle groups., Communicating appropriately Hospital Course Patient is an 86-year-old female with a past medical history of hypertension, renal dysfunction, and borderline diabetes that presents with a chief complaint of neck pain of 5 days duration after performing neck physical therapy exercises. She also complained of chronic right lower quadrant abdominal pain and was also found to have an NSTEMI on admission. Neurology consulted for MRI/ MRA findings, which were determined to not contribute to her neck pain and recommended discharge to acute rehabilitation with follow-up in his office. For her NSTEMI, cardiology recommended medical management and follow-up with Dr. 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 Gastroenterology was consulted due to patient's long history of right lower quadrant pain. Colonoscopy was performed on 12/29 with biopsies sent for pathology review that came back as normal colonic mucosa without significant histopathologic abnormality. She will follow up with GI in clinic for her chronic abdominal pain. Pt Condition on Discharge: Stable Discharge Disposition: Discharge to SNF Discharge Instructions DIET: Follow Instructions for: As Tolerated, No Restrictions Speech Therapy-Diet Recommends: Regular Activities you can perform: Weight Bearing as Silas Other Activity Instructions: Avoid neck exercises Follow up Referrals: Appointment for Follow Up - 1 Week with PCP Cardiology - 1 Week with Bianca Olivera MD Gastroenterology - 2 Weeks with Danya Terrazas MD Neurology - 2 Weeks with Domingo Chavez MD [facility]/ with [facility] New Orders: MRI Brain W/O Contrast - 1 Month New Medications: Clonidine (Clonidine) 0.1 Mg Tab 0.1 MG PO Q6HR PRN SBP>180, DBP>100, HR>65 #60 Ref 0 TAB Ahbkoaam-Ybkblztuk-Ijnpthylevi Liq (Mag-Al Plus Liq) 200-200-20 Mg/5 Ml Susp 30 ML PO Q6H PRN REFLUX #3600 ML Amlodipine (Norvasc) 10 Mg Tab 10 MG PO DAILY #[address] (Aspirin EC) 81 Mg Tabdr 81 MG PO DAILY #30 TAB Continued Medications: Esomeprazole DR (Esomeprazole DR) 40 Mg Capdr 40 MG PO BID #30 Ref 0 CAP Furosemide (Lasix) 40 Mg Tab 40 MG PO DAILY PRN EDEMA #30 Ref 0 TAB Labetalol (Labetalol) 100 Mg Tab 100 MG PO TID Blood Pressure Management Ref 0 TAB Latanoprost Opth Drops (Latanoprost Opth Drops) 0.005% Drops 1 DROP EACH EYE HS Refrigerate until opened. Glaucoma #2.5 Ref 0 ML Losartan (Losartan) 50 Mg Tab 50 MG PO BID Blood Pressure Management #30 Ref 0 TAB Meclizine (Meclizine) 12.5 Mg Tab 6.25 MG PO Q8HR PRN DIZZINESS Ref 0 TAB Oral Electrolytes (Thermotabs) 1 Tab Tab 1 TAB PO DAILY Potassium Chloride ER (K-Tab) 20 Meq Tab 20 MEQ PO DAILY Electrolyte Replacement #30 Ref 0 TAB Pravastatin (Pravastatin) 40 Mg Tab 40 MG PO DAILY Cholesterol Management #30 Ref 0 TAB Discontinued Medications: Clonidine (Clonidine) 0.1 Mg Tab 0.1 MG PO TID Blood Pressure Management #60 Ref 0 TAB Cheri Gil MD R1 Jan 03, 2017 16:16
== END 2016-12-29 20:30 ==
LOC: NEPE 08:30 → NEDA 11:30 → INTOOBSV 11:30 → N04B 16:27
PROVIDERS: ADMIT Family Medicine; ATTEND Family Medicine
DX: I21.4 Non-ST elevation (NSTEMI) myocardial infarction (principal); M54.2 Cervicalgia; K59.09 Other constipation; I11.0 Hypertensive heart disease with heart failure; I50.9 Heart failure, unspecified; R10.31 Right lower quadrant pain; N30.01 Acute cystitis with hematuria; K64.8 Other hemorrhoids; E78.5 Hyperlipidemia, unspecified; K21.9 Gastro-esophageal reflux disease without esophagitis; E86.0 Dehydration; G89.29 Other chronic pain; R73.03 Prediabetes; R62.7 Adult failure to thrive; D32.0 Benign neoplasm of cerebral meninges; I65.23 Occlusion and stenosis of bilateral carotid arteries; G25.9 Extrapyramidal and movement disorder, unspecified; I47.1 Supraventricular tachycardia; I65.02 Occlusion and stenosis of left vertebral artery; E87.1 Hypo-osmolality and hyponatremia; R73.9 Hyperglycemia, unspecified; E88.09 Other disorders of plasma-protein metabolism, not elsewhere classified; J98.11 Atelectasis; R63.0 Anorexia; M75.01 Adhesive capsulitis of right shoulder; M75.02 Adhesive capsulitis of left shoulder; R63.4 Abnormal weight loss; R22.1 Localized swelling, mass and lump, neck
CPT/HCPCS: 00810; 45380; 70450; 70543; 70544; 70548; 70553; 71010; 72125; 72156; 74177; 76536; 76700; 80048; 80053; 80061; 81001; 82550; 82607; 83690; 83735; 83921; 84100; 84425; 84439; 84443; 84484; 85025; 85027; 85610; 85652; 85730; 86038; 86140; 86592; 87086; 88305; 92610; 93005; 93306; 93880; 94150; 96125; 96365; 97110; 97116; 97163; 97530; 99285; A9579; G0378; G8987; G8988; G8996; G8997; G8998; J0360; J0744; J1644; J1956; J2405; J7030; Q9963; Q9967; 76937